=== PATIENT | male | born 1960 | race Caucasian/White ===

== ENCOUNTER → 2016-12-29 | Outpatient (CLI) | payer BC, OTHER ==
[~2016-12-29] MED LIST: ACET-1256 PO; ANTIFUNGAL TOP; ASCA500 PO; ASPEC325 PO; CALCTAB5 PO; CPRUNK PO; FERR325T5 PO; GLCSC750600 PO; GLUC10007 PO; IBUP-1277 PO; LRTUNK PO; MAGN400T6 PO; METO-217 PO; METO25TA3 PO; MULT-506 PO; OMEG10007 PO; PANT40TA PO; ROSU5TAB PO; SERT50TA PO; TRAM-10 PO; TRAM-453 PO; VITAMIN B 12 INJ
[2016-12-29 12:44] LABS: ALB/GLOB RATIO 1.3 (0.9-2); ALT/SGPT 42 U/L (12-78); BLOOD UREA NITROGEN 12 mg/dl (7-18); BUN/CREATININE RATIO 13.4 (10-20); CALCIUM 8.5 mg/dl (8.5-10.1); CARBON DIOXIDE 22 mmol/L (21-32); CHLORIDE 107 mmol/L (98-107); CHOLESTEROL 123 mg/dl (0-200); CREATININE 0.86 mg/dl (0.60-1.40); GLUCOSE 103 mg/dl (70-99); POTASSIUM 3.2 mmol/L (3.5-5.1); SODIUM 140 mmol/L (136-145)
[2016-12-29 12:45] LABS: ALKALINE PHOSPHATASE 56 U/L (45-117); AST/SGOT 29 U/L (15-37); CHOLESTEROL/HDL RATIO 4.6; HDL CHOLESTEROL 27 mg/dl; LDL CHOLESTEROL CALCULATED 60 mg/dl; TRIGLYCERIDES 179 mg/dl (0-150); VERY LOW DENSITY LIPOPROT CALC 36 mg/dl
== END | disposition home or self-care (01) ==
LOC: C.LABPVFM 09:57
PROVIDERS: ATTEND Family Medicine
DX: E78.5 Hyperlipidemia, unspecified (principal); I10 Essential (primary) hypertension; R00.2 Palpitations

== ENCOUNTER → 2017-01-03 | Outpatient (CLI) | payer BC, OTHER ==
[2017-01-03 11:18] LABS: INR 0.9 (0.9-1.1)
[2017-01-03 11:37] LABS: BLOOD UREA NITROGEN 5 mg/dl (7-18); BUN/CREATININE RATIO 6.4 (10-20); CALCIUM 8.4 mg/dl (8.5-10.1); CARBON DIOXIDE 27 mmol/L (21-32); CHLORIDE 108 mmol/L (98-107); CREATININE 0.75 mg/dl (0.60-1.40); GLUCOSE 85 mg/dl (70-99); SODIUM 143 mmol/L (136-145)
[2017-01-03 11:40] LABS: HEMATOCRIT 20.8 % (42-52); MEAN CELL VOLUME 109.5 fL (80-100); MEAN CORPUSCULAR HEMOGLOBIN 33.7 pg (25-34); MEAN CORPUSCULAR HGB CONC 30.8 g/dl (32-36); MEAN PLATELET VOLUME 9.2 fL (7.4-10.4); PLATELET COUNT 331 K/uL (130-400); WHITE BLOOD COUNT 5.44 K/uL (4.8-10.8)
[2017-01-03 11:49] LABS: BASO % 0.7 %; BASO ABS # 0.04 K/uL (0-0.2); COMPLETE YES; EOS % 2.4 %; HYPOCHROMIA PRESENT; IG% 0.7 %; LYMPH % 24.6 %; LYMPH ABS # 1.34 K/uL (1.2-3.4); MONO % 12.7 %; NEUT % 58.9 %; POLYCHROMASIA 2+
[2017-01-03 13:17] LABS: URINE APPEARANCE CLEAR (CLEAR); URINE BILIRUBIN NEG (NEG); URINE COLOR DK YELLOW; URINE NITRITE NEG (NEG); UROBILINOGEN NEG (NEG)
[2017-01-03 13:26] LABS: MANUAL MICROSCOPIC REQUIRED? NO; REVIEW REQ? NO
== END | disposition home or self-care (01) ==
LOC: C.CPL 10:03
PROVIDERS: ATTEND Orthopaedic Surgery
DX: Z01.810 Encounter for preprocedural cardiovascular examination (principal)

== ENCOUNTER 2017-01-04 11:25 | Inpatient (IN) | payer OTHER ==
[2017-01-04] VITALS (13 sets, daily range): BP systolic 130–165; BP diastolic 78–99; PULSE 84–110; TEMP 36.9–37.3; O2SAT 98–100; Ht 182.9 cm; Wt 98.4 kg
[~2017-01-04] VITALS: Ht 182.9 cm; Wt 98.4 kg
[~2017-01-04 11:25] MED LIST changes: -ACET-1256 PO; -FERR325T5 PO; -GLUC10007 PO; -IBUP-1277 PO; -MAGN400T6 PO; -METO-217 PO; -METO25TA3 PO; -MULT-506 PO; -OMEG10007 PO; -PANT40TA PO; -ROSU5TAB PO; -SERT50TA PO; -TRAM-10 PO; -TRAM-453 PO; -VITAMIN B 12 INJ
[2017-01-04] MEDS ORDERED: IBUP-1277 PO (11:42)
[2017-01-04] MEDS ORDERED: ROSU5TAB PO (11:42)
[2017-01-04] MEDS ORDERED: METO25TA3 PO (11:42)
[2017-01-04] MEDS ORDERED: MAGN400T6 PO (11:42)
[2017-01-04] MEDS ORDERED: ACET-1256 PO (11:42)
[2017-01-04] MEDS ORDERED: OMEG10007 PO (11:42)
[2017-01-04] MEDS ORDERED: GLUC10007 PO (11:42)
[2017-01-04 12:21] LABS: ISTAT CREATININE 0.8 mg/dl (0.6-1.3); ISTAT HEMOGLOBIN 7.8 g/dl (14.0-18.0); ISTAT IONIZED CALCIUM 1.24 mmol/l (1.12-1.32)
[2017-01-04] MEDS ORDERED: SODIUM CHLORIDE 0.9% 1000ML 1,000 ML IV STA (13:06)
[2017-01-04 13:20] LABS: BASO % 0.5 %; BASO ABS # 0.03 K/uL (0-0.2); EOS % 0.8 %; IG% 0.3 %; LYMPH % 18.5 %; MEAN CELL VOLUME 105.7 fL (80-100); MEAN CORPUSCULAR HGB CONC 31.3 g/dl (32-36); MEAN PLATELET VOLUME 9.5 fL (7.4-10.4); MONO % 8.8 %; NEUT % 71.1 %; PLATELET COUNT 371 K/uL (130-400); RED BLOOD COUNT 2.27 M/uL (4.7-6.1); WHITE BLOOD COUNT 6.49 K/uL (4.8-10.8)
[2017-01-04 13:21] LABS: BUN/CREATININE RATIO 7.2 (10-20); CALCIUM 9.2 mg/dl (8.5-10.1); CREATININE 0.82 mg/dl (0.60-1.40); POTASSIUM 3.9 mmol/L (3.5-5.1)
[2017-01-04 13:32] LABS: PARTIAL THROMBOPLASTIN RATIO 0.8; PROTHROMBIN TIME (PATIENT) 10.2 SECONDS (9.0-12.0)
[2017-01-04 13:50] LABS: ANISOCYTOSIS PRESENT; COMPLETE YES; POLYCHROMASIA 2+
[2017-01-04] MEDS ORDERED: PANTOprazole INJ 40 MG in SYRINGE 0 ML IV ONE (14:00)
[2017-01-04 14:06] LABS: URINE APPEARANCE CLEAR (CLEAR); URINE BILIRUBIN NEG (NEG); URINE COLOR YELLOW; URINE NITRITE NEG (NEG); URINE SPECIFIC GRAVITY 1.007 (1.000-1.030); UROBILINOGEN NEG (NEG)
[2017-01-04 14:12] LABS: MANUAL MICROSCOPIC REQUIRED? NO; REVIEW REQ? NO
[2017-01-04] MEDS ORDERED: PANTOprazole INJ 80 MG in DEXTROSE 5% 100ML IV SCH (14:30)
[2017-01-04] MEDS ORDERED: PANTOprazole INJ 40 MG in DEXTROSE 5% 100ML IV SCH (14:45)
--- NOTE | 2017-01-04 14:59 | EMERGENCY ROOM VISIT NOTE ---
History Report prepared by Ty: Jai White Under the Supervision of: Dr. Mauricio Dominguez D.O. First contact with patient: 13:03 Chief Complaint: ABNORMAL LABS Stated Complaint: LOW HEMOGLOBIN History of Present Illness The patient is a 56 year old male who presents to the Emergency Room with concerns over low blood hemoglobin levels that the patient was informed of today , shortly prior to arrival. The patient notes that he first noticed black and tarry stools 9 days prior to this visit. He has not noticed any such irregularities in his stools in the past three days. The patient also notes experiencing some vomiting and influenza-like symptoms on the 25 of December, 11 days ago. He also complains of chest pain, which is worsened by standing and physical activity. 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 Patient denies headache, change in vision, fevers, and pain with urination. 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 A total of 10 systems reviewed and were otherwise negative. Past Medical & Surgical Medical Problems: (1) Hyperlipidemia (2) Hypertension (3) Low hemoglobin Family History Hypertension Pernicious Anemia MOTHER BROTHER SISTER Social History Smoking Status: Never Smoker Alcohol Use: occasionally Drug Use: none Occupation Status: employed Current/Historical Medications Scheduled Acetaminophen (Tylenol), 1,000 MG PO DAILY Fish Oil ([place]-3), 3,000 MG PO DAILY Glucosamine Sulfate (Glucosamine), 2,000 MG PO DAILY Ibuprofen (Advil), 200-600 MG PO Q4H Magnesium Oxide (Mag-Ox), 400 MG PO DAILY Metoprolol Succ (Toprol Xl) (Toprol-Xl), 25 MG PO DAILY Rosuvastatin Calcium (Crestor), 5 MG PO Q2D Allergies Coded Allergies: BEE STING (Unverified Allergy, Unknown, anaphylaxis, 01/04/17) Penicillins (Verified Allergy, Unknown, RASH, 01/04/17) Uncoded Allergies: "SYNTHETIC PAIN KILLERS" (Allergy, Unknown, violent nausea per pt, 01/04/17) Physical Exam Vital Signs Date Time Temp Pulse Resp B/P Pulse Ox O2 Delivery O2 Flow Rate FiO2 01/04/17 16:04 Room Air 3/8/17 15:39 37.3 108 16 150/83 98 01/04/17 15:22 36.9 103 16 146/79 100 01/04/17 15:05 37.0 100 22 153/93 98 01/04/17 14:28 104 20 160/91 99 Room Air 01/04/17 12:57 97 18 151/92 94 Room Air 01/04/17 12:07 96 Room Air 01/04/17 12:02 100 01/04/17 11:27 36.8 103 20 154/86 100 Room Air Pain Rating (0-10): 0 Physical Exam GENERAL: sitting up in bed, disheveled, well nourished, no distress, non-toxic EYE EXAM: normal conjunctiva, PERRL and EOM's grossly intact OROPHARYNX: no exudate, no erythema, lips, buccal mucosa, and tongue normal and mucous membranes are moist NECK: supple, no nuchal rigidity, no adenopathy, non-tender LUNGS: Clear to auscultation. Normal chest wall mechanics HEART: no murmurs, S1 normal and S2 normal ABDOMEN: abdomen soft, non-tender, normo-active bowel sounds, no masses, no rebound or guarding. BACK: Back is symmetrical on inspection and there is no deformity, no midline tenderness, no CVA tenderness. SKIN: no rashes and no bruising UPPER EXTREMITIES: upper extremities are grossly normal. LOWER EXTREMITIES: No pitting edema. NEURO EXAM: Normal sensorium, cranial nerves II-XII grossly intact, normal speech, no gross weakness of arms, no gross weakness of legs. RECTAL: No hemorrhoids, heme negative, no stool present. Medical Decision & Procedures Laboratory Results 01/04/17 12:00 Red Blood Count 2.27, Mean Corpuscular Volume 105.7, Mean Corpuscular Hemoglobin 33.0, Mean Corpuscular Hemoglobin Concent 31.3, Mean Platelet Volume 9.5, Neutrophils (%) (Auto) 71.1, Lymphocytes (%) (Auto) 18.5, Monocytes (%) ( Auto) 8.8, Eosinophils (%) (Auto) 0.8, Basophils (%) (Auto) 0.5, Neutrophils # ( Auto) 4.62, Lymphocytes # (Auto) 1.20, Monocytes # (Auto) 0.57, Eosinophils # ( Auto) 0.05, Basophils # (Auto) 0.03 01/04/17 12:00 Test 01/04/17 12:00 01/04/17 12:02 01/04/17 13:40 01/04/17 16:01 White Blood Count 6.49 K/uL (4.8-10.8) Red Blood Count 2.27 M/uL (4.7-6.1) Hemoglobin 7.5 g/dL (14.0-18.0) Hematocrit 24.0 % (42-52) Mean Corpuscular Volume 105.7 fL (80-100) Mean Corpuscular Hemoglobin 33.0 pg (25-34) Mean Corpuscular Hemoglobin Concent 31.3 g/dl (32-36) Platelet Count 371 K/uL (130-400) Mean Platelet Volume 9.5 fL (7.4-10.4) Neutrophils (%) (Auto) 71.1 % Lymphocytes (%) (Auto) 18.5 % Monocytes (%) (Auto) 8.8 % Eosinophils (%) (Auto) 0.8 % Basophils (%) (Auto) 0.5 % Neutrophils # (Auto) 4.62 K/uL (1.4-6.5) Lymphocytes # (Auto) 1.20 K/uL (1.2-3.4) Monocytes # (Auto) 0.57 K/uL (0.11-0.59) Eosinophils # (Auto) 0.05 K/uL (0-0.5) Basophils # (Auto) 0.03 K/uL (0-0.2) RDW Standard Deviation 65.9 fL (36.4-46.3) RDW Coefficient of Variation 17.3 % (11.5-14.5) Immature Granulocyte % (Auto) 0.3 % Immature Granulocyte # (Auto) 0.02 K/uL (0.00-0.02) Nucleated RBC Absolute Count (auto) 0.03 K/uL (0-0) Nucleated Red Blood Cells % 0.4 % Polychromasia 2+ Anisocytosis PRESENT Prothrombin Time 10.2 SECONDS (9.0-12.0) Prothromb Time International Ratio 1.0 (0.9-1.1) Activated Partial Thromboplast Time 19.8 SECONDS (21.0-31.0) Partial Thromboplastin Ratio 0.8 Est Creatinine Clear Calc Drug Dose 123.8 ml/min Estimated GFR () 115.4 Estimated GFR (Non- 99.6 BUN/Creatinine Ratio 7.2 (10-20) Calcium Level 9.2 mg/dl (8.5-10.1) Total Bilirubin 0.4 mg/dl (0.2-1) Direct Bilirubin 0.1 mg/dl (0-0.2) Aspartate Amino Transf (AST/SGOT) 36 U/L (15-37) Alanine Aminotransferase (ALT/SGPT) 53 U/L (12-78) Alkaline Phosphatase 70 U/L (45-117) Troponin I < 0.015 ng/ml (0-0.045) Total Protein 6.6 gm/dl (6.4-8.2) Albumin 3.3 gm/dl (3.4-5.0) Lipase 215 U/L (73-393) Bedside Hemoglobin 7.8 g/dl (14.0-18.0) Bedside Hematocrit 23 % (42-52) Bedside Sodium 141 mEq/L (135-144) Bedside Potassium 3.9 mEq/L (3.3-5.0) Bedside Chloride 103 mEq/L (101-112) Bedside Total CO2 23 mEq/l (24-31) Anion Gap 19.0 mmol/L (16-25) Bedside Blood Urea Nitrogen 4 mg/dl (7-18) Bedside Creatinine 0.8 mg/dl (0.6-1.3) Bedside Glucose (other) 105 mg/dl (70-99) Bedside Ionized Calcium (Joaquina) 1.24 mmol/l (1.12-1.32) Urine Color YELLOW Urine Appearance CLEAR (CLEAR) Urine pH 8.0 (4.5-7.5) Urine Specific [place] 1.007 (1.000-1.030) Urine Protein NEG (NEG) Urine Glucose (UA) NEG (NEG) Urine Ketones NEG (NEG) Urine Occult Blood NEG (NEG) Urine Nitrite NEG (NEG) Urine Bilirubin NEG (NEG) Urine Urobilinogen NEG (NEG) Urine Leukocyte Esterase NEG (NEG) Transferrin % Saturation % (20-50) Laboratory results per my review. Medications Administered Medications (Trade) Dose Ordered Sig/Johana Route Start Time Stop Time Status Last Admin Dose Admin Sodium Chloride 1,000 ml @ 999 mls/hr Q1H1M STAT IV 01/04/17 13:06 01/04/17 14:06 DC 01/04/17 12:58 999 MLS/HR Pantoprazole Sodium 40 mg/ Syringe 10 ml @ 5 mls/min NOW ONCE IV 01/04/17 14:00 01/04/17 14:01 DC 01/04/17 14:24 5 MLS/MIN Pantoprazole Sodium/Dextrose (Protonix Inj/D5 100ml) 100 ml @ 20 mls/hr 1445 IV 01/04/17 14:45 01/04/17 19:44 01/04/17 14:56 20 MLS/HR ECG Indication: other (Melena) Rate (beats per minute): 96 Rhythm: normal sinus Findings: nonspecific-ST abn, no ectopy, other (Normal [place]) ED Course ED COURSE: Vital signs were reviewed and showed Tachycardiac vitals The patients medical record was reviewed The above diagnostic studies were performed and reviewed. ED treatments and interventions as stated above. 1306: Ordered Sodium Chloride 1000 mL @ 999 mL/hr IV. 1319: The patient was evaluated in room A11. A complete history and physical examination was performed. 1400: Ordered Pantoprazole 10 mL @ 5 mL/min IV. 1407: I discussed the case with Dr. Campos at this time, he will evaluate the patient for further treatment. 1409: Ordered Pantoprazole Sodium 1 IV. 1445: Ordered Pantoprazole 100 mL @ 20 mL/hr IV. 1450: Upon reevaluation, the patient is resting in bed.I discussed my findings with the patient and he understands and agrees with the treatment plan. Based on the patients age, coexisting illnesses, exam and lab findings the decision to treat as an inpatient was made. The patient remained stable while under my care. The patient will be evaluated for further management. Medical Decision Differential diagnosis: Etiologies such as diverticulosis, AVM, coagulopathy, colitis, inflammatory bowel disease, malignancy, Linda-Dee tear, esophagitis, peptic ulcer disease , variceal bleed, gastritis, epistaxis, fissure, hemorrhoids, as well as others were entertained. Patient is a 56-year-old male who presents the ER for dark tarry stools which has been present for this past week. It resolved Monday. Patient does take ibuprofen daily 600 mg. Patient's exam is completely benign. Rectal was heme- negative but no stool was obtained. He has no abdominal pain. Vitals are remarkable for mild tachycardia. Hemoglobin was 7.8 down from 15. Patient was given bolus and will saline. He was typed and crossed. He is ordered 1 unit of PRBC. BMP along with LFTs, bilirubin and lipase were unremarkable. UA was negative. His placed Protonix drip and bolus in its and internal medicine for GI bleed. No previous colonoscopy. Patient remained hemodynamic stable along the ER. Patient was in its internal medicine for further workup of his GI bleed. Consults Time Called: [phone] Consulting Physician: Dr. Campos - [facility] Returned Call: [phone] I discussed the case with Dr. Campos at this time, he will evaluate the patient for further treatment. Impression Primary Impression: GI bleed Additional Impression: Symptomatic anemia Scribe Attestation The scribe's documentation has been prepared under my direction and personally reviewed by me in its entirety. I confirm that the note above accurately reflects all work, treatment, procedures, and medical decision making performed by me. Departure Information Dispostion Being Evaluated By Hospitalist Referrals Yuan Baez M.D. (PCP) Patient Instructions My [facility] Problem Qualifiers Primary Impression: GI bleed GI bleed type/associated pathology: unspecified gastrointestinal hemorrhage type Qualified Codes: K92.2 - Gastrointestinal hemorrhage, unspecified
[2017-01-04] MEDS ORDERED: POLYETHYLENE (MIRALAX) 17 GM PACK PO PRN (15:00)
[2017-01-04] MEDS ORDERED: MAGNESIUM HYDROXIDE SUSP 30 ML UDC PO PRN (15:00)
[2017-01-04] MEDS ORDERED: ALUMINUM/MAGNESIUM/SIMETH (MAALOX MAX) 30 ML UDC PO PRN (15:00)
[2017-01-04] MEDS ORDERED: ONDANSETRON INJ 2 MG/ML 2 ML VIAL IV PRN (15:00)
[2017-01-04] MEDS ORDERED: ACETAMINOPHEN 325 MG TAB PO PRN (15:00)
--- NOTE | 2017-01-04 15:13 | History and Physical ---
History & Physical Date & Time of Service: Jan 04, 2017 at 15:09 Chief Complaint: Low Hemoglobin Primary Care Physician: Yuan Baez M.D. History of Present Illness Source: patient Mr. Mcfarland is a 56 y/o male with PMHx of HTN, Tachycardia, and HLD who presents to the ED for a low hemoglobin. Patient reports he had routine blood work yesterday for his anticipated right knee meniscal repair surgery. He was called today because his hemoglobin was 6.4. Patient believes his symptoms started on 12/25/2016, he reports flulike symptoms with emesis. He had multiple episodes but denies hematemesis or coffee ground emesis. Emesis contained the foods he attempted to eat. At this time he reported constipation , but on 12/26/2016 he noticed his first black tarry stool. He continued to have these dark-colored stools up until Monday. At this time stools are brown and occasionally loose. He denies hematochezia. He denies history of EGD or colonoscopies. He currently takes ibuprofen 600 mg nearly daily and in the past would use 1200 mg nearly daily. He denies excessive alcohol consumption. Associated shortness of breath on exertion that started at the same time the flulike symptoms began. He reports chest heaviness in addition to the shortness of breath. The symptoms are resolved at rest. Denies family history of colon cancer. Reports significant family history of pernicious anemia in mother, sister, and brother. He denies personal history of pernicious anemia or gastric bypass surgery. He denies fever/chills, N/V, abdominal pain, or dysuria. In the ED, patient is afebrile and mildly tachycardic. Patient is hypertensive. Laboratory significant for hemoglobin of 7.5. Liver function testing is normal and coagulation studies are within normal limits. Patient was started on a Protonix bolus and drip and hydrated with 1 bolus NSS. He will be admitted to telemetry for further evaluation and care. Family History Hypertension Pernicious Anemia MOTHER BROTHER SISTER Social History Smoking Status: Never Smoker Alcohol Use: none Multi-Drug Resistant Organisms History of MDRO: No Allergies Coded Allergies: BEE STING (Unverified Allergy, Unknown, anaphylaxis, 01/04/17) Penicillins (Verified Allergy, Unknown, RASH, 01/04/17) Uncoded Allergies: "SYNTHETIC PAIN KILLERS" (Allergy, Unknown, violent nausea per pt, 01/04/17) Home Medications Scheduled Acetaminophen (Tylenol), 1,000 MG PO DAILY Fish Oil ([place]-3), 3,000 MG PO DAILY Glucosamine Sulfate (Glucosamine), 2,000 MG PO DAILY Ibuprofen (Advil), 200-600 MG PO Q4H Magnesium Oxide (Mag-Ox), 400 MG PO DAILY Metoprolol Succ (Toprol Xl) (Toprol-Xl), 25 MG PO DAILY Rosuvastatin Calcium (Crestor), 5 MG PO Q2D Review of Systems Constitutional: No chills, No fever Eyes: No worsening of vision ENT: No nasal symptoms, No sore throat, No trouble swallowing Respiratory: + dyspnea on exertion, No dyspnea at rest Cardiovascular: + chest pain (heaviness with exertion) Abdomen: No constipation, No diarrhea, No nausea, No pain, No vomiting Musculoskeletal: No calf pain Genitourinary - Male: No dysuria Neurologic: + vertigo, No numbness/tingling Integumentary: No rash Physical Exam Vital Signs Date Time Temp Pulse Resp B/P Pulse Ox O2 Delivery O2 Flow Rate FiO2 01/04/17 15:05 37.0 100 22 153/93 98 01/04/17 14:28 104 20 160/91 99 Room Air 01/04/17 12:57 97 18 151/92 94 Room Air 01/04/17 12:07 96 Room Air 01/04/17 12:02 100 01/04/17 11:27 36.8 103 20 154/86 100 Room Air General Appearance: WD/WN, no apparent distress Head: normocephalic, atraumatic Eyes: PERRL, EOMI, sclerae normal ENT: hearing grossly normal Neck: supple, no JVD, trachea midline Respiratory/Chest: lungs clear, normal breath sounds, no respiratory distress, no accessory muscle use Cardiovascular: regular rate, rhythm, no gallop, no murmur Abdomen/GI: normal bowel sounds, non tender, soft Back: no CVA tenderness Extremities/Musculoskelatal: + swelling (trace pitting edema bilat) Neurologic/Psych: alert, oriented x 3 Skin: warm/dry, + pallor Diagnostics Laboratory Results Results Past 24 Hours Test 01/04/17 12:00 01/04/17 12:02 01/04/17 13:40 Range/Units White Blood Count 6.49 4.8-10.8 K/uL Red Blood Count 2.27 4.7-6.1 M/uL Hemoglobin 7.5 14.0-18.0 g/dL Hematocrit 24.0 42-52 % Mean Corpuscular Volume 105.7 80-100 fL Mean Corpuscular Hemoglobin 33.0 25-34 pg Mean Corpuscular Hemoglobin Concent 31.3 32-36 g/dl Platelet Count 371 130-400 K/uL Mean Platelet Volume 9.5 7.4-10.4 fL Neutrophils (%) (Auto) 71.1 % Lymphocytes (%) (Auto) 18.5 % Monocytes (%) (Auto) 8.8 % Eosinophils (%) (Auto) 0.8 % Basophils (%) (Auto) 0.5 % Neutrophils # (Auto) 4.62 1.4-6.5 K/uL Lymphocytes # (Auto) 1.20 1.2-3.4 K/uL Monocytes # (Auto) 0.57 0.11-0.59 K/uL Eosinophils # (Auto) 0.05 0-0.5 K/uL Basophils # (Auto) 0.03 0-0.2 K/uL RDW Standard Deviation 65.9 36.4-46.3 fL RDW Coefficient of Variation 17.3 11.5-14.5 % Immature Granulocyte % (Auto) 0.3 % Immature Granulocyte # (Auto) 0.02 0.00-0.02 K/uL Nucleated RBC Absolute Count (auto) 0.03 0-0 K/uL Nucleated Red Blood Cells % 0.4 % Polychromasia 2+ Anisocytosis PRESENT Prothrombin Time 10.2 9.0-12.0 SECONDS Prothromb Time International Ratio 1.0 0.9-1.1 Activated Partial Thromboplast Time 19.8 21.0-31.0 SECONDS Partial Thromboplastin Ratio 0.8 Sodium Level 142 136-145 mmol/L Potassium Level 3.9 3.5-5.1 mmol/L Chloride Level 107 98-107 mmol/L Carbon Dioxide Level 22 21-32 mmol/L Anion Gap 13.0 19.0 16-25 mmol/L Blood Urea Nitrogen 6 7-18 mg/dl Creatinine 0.82 0.60-1.40 mg/dl Est Creatinine Clear Calc Drug Dose 123.8 ml/min Estimated GFR () 115.4 Estimated GFR (Non- 99.6 BUN/Creatinine Ratio 7.2 10-20 Random Glucose 100 70-99 mg/dl Calcium Level 9.2 8.5-10.1 mg/dl Total Bilirubin 0.4 0.2-1 mg/dl Direct Bilirubin 0.1 0-0.2 mg/dl Aspartate Amino Transf (AST/SGOT) 36 15-37 U/L Alanine Aminotransferase (ALT/SGPT) 53 12-78 U/L Alkaline Phosphatase 70 45-117 U/L Total Protein 6.6 6.4-8.2 gm/dl Albumin 3.3 3.4-5.0 gm/dl Lipase 215 73-393 U/L Bedside Hemoglobin 7.8 14.0-18.0 g/dl Bedside Hematocrit 23 42-52 % Bedside Sodium 141 135-144 mEq/L Bedside Potassium 3.9 3.3-5.0 mEq/L Bedside Chloride 103 101-112 mEq/L Bedside Total CO2 23 24-31 mEq/l Bedside Blood Urea Nitrogen 4 7-18 mg/dl Bedside Creatinine 0.8 0.6-1.3 mg/dl Bedside Glucose (other) 105 70-99 mg/dl Bedside Ionized Calcium (Joaquina) 1.24 1.12-1.32 mmol/l Urine Color YELLOW Urine Appearance CLEAR CLEAR Urine pH 8.0 4.5-7.5 Urine Specific [place] 1.007 1.000-1.030 Urine Protein NEG NEG Urine Glucose (UA) NEG NEG Urine Ketones NEG NEG Urine Occult Blood NEG NEG Urine Nitrite NEG NEG Urine Bilirubin NEG NEG Urine Urobilinogen NEG NEG Urine Leukocyte Esterase NEG NEG EKG Normal sinus rhythm Nonspecific ST abnormality Abnormal ECG When compared with ECG of 03-JAN-2017 10:32, No significant change was found Impression Assessment and Plan Mr. Mcfarland is a 56 y/o male with PMHx of HTN, Tachycardia, and HLD who presents to the ED for a low hemoglobin. Acute Blood Loss Anemia with Melena: Hgb 7.5 - Transfuse 2 units PRBC now - Serial H&H Q6H - B12 level - given significant FMHx -- May need additional workup - Protonix gtt - NSS at 100 mL/hr - Consult GI - spoke with Dr. May Significant Heart Murmur: - Harsh loud murmur auscultated in all heart regions - After hydration will evaluate in AM? May need echo to evaluate for abnormality - flow murmur? HTN and Tachycardia: - Patient denies arrhythmias but known to have an elevated HR normally in 90s - Hold Metoprolol XL while NPO - Metoprolol Tartrate 2.5 mg IV TID HLD: - Hold Crestor 5 mg - states recent labs are good and was instructed to take biweekly DVT Prophylaxis: - LINDA/SCDs - Withhold chemical prophylaxis in setting of GI bleed Code Status: FULL RESUSCITATION Disposition: From home Pt examined independently - above hostroy and orders reviwed and discussed with PA Admitted with weakness, SOB and anemia - admits to dark stools and frequent NSAID use Initial Hb 6.3 - 7.2 OEAAO x 3 S1,2 r + pansystolic murmur CTAB NT, NT, BS + no C/C/E P: transfuse 2 units - trend Hb - protonix, GI consult reg murmur - this may be flow-related due t his anemia - it is prominent however and pt was not aware of a murmur history - if following volume repletion /transfusions murmur is still audible then we will obtain an echo pt assigned to telemetry Level of Care Telemetry Resuscitation Status FULL RESUSCITATION VTE Prophylaxis VTE Risk Assessment Done? Y/N: Yes Risk Level: Moderate Given or contraindicated: T.E.D. Stockings, SCD's
--- NOTE | 2017-01-04 16:21 | Gastroenterology Progress Note ---
Progress Note Date of Service: Jan 04, 2017 Subjective Pt evaluation today including: conversation w/ patient, physical exam, chart review, lab review, review of studies, review of inpatient medication list Medications Current Inpatient Medications Medications (Trade) Dose Ordered Sig/Johana Route Start Time Stop Time Status Last Admin Dose Admin Pantoprazole Sodium 40 mg/ Dextrose 100 ml @ 20 mls/hr 1445 IV 01/04/17 14:45 01/04/17 19:44 01/04/17 14:56 20 MLS/HR Sodium Chloride (Nss 1000ml) 1,000 ml @ 100 mls/hr Q10H IV 01/04/17 14:58 02/03/17 14:57 Acetaminophen (Tylenol Tab) 650 mg Q4H PRN PO 01/04/17 15:00 02/03/17 14:59 Al Hydrox/Mg Hydrox/Simethicone (Maalox Max Susp) 15 ml Q4H PRN PO 01/04/17 15:00 02/03/17 14:59 Magnesium Hydroxide (Milk Of Magnesia Susp) 30 ml Q12H PRN PO 01/04/17 15:00 02/03/17 14:59 Ondansetron HCl (Zofran Inj) 4 mg Q6H PRN IV 01/04/17 15:00 02/03/17 14:59 Polyethylene (Miralax Powder Packet) 17 gm DAILY PRN PO 01/04/17 15:00 02/03/17 14:59 Metoprolol Tartrate 2.5 mg 2.5 mg Q8H IV. 01/04/17 15:00 02/03/17 14:59 UNV Pantoprazole Sodium/Dextrose (Protonix Inj/D5 100ml) 100 ml @ 20 mls/hr Q5H IV 01/04/17 15:00 02/03/17 14:59 UNV Objective Vital Signs Date Time Temp Pulse Resp B/P Pulse Ox O2 Delivery O2 Flow Rate FiO2 01/04/17 15:39 37.3 108 16 150/83 98 01/04/17 15:22 36.9 103 16 146/79 100 01/04/17 15:05 37.0 100 22 153/93 98 01/04/17 14:28 104 20 160/91 99 Room Air 01/04/17 12:57 97 18 151/92 94 Room Air 01/04/17 12:07 96 Room Air 01/04/17 12:02 100 01/04/17 11:27 36.8 103 20 154/86 100 Room Air Laboratory Results Last 24 Hours Test 01/04/17 12:00 01/04/17 12:02 01/04/17 13:40 01/04/17 16:01 White Blood Count 6.49 K/uL Red Blood Count 2.27 M/uL Hemoglobin 7.5 g/dL Hematocrit 24.0 % Mean Corpuscular Volume 105.7 fL Mean Corpuscular Hemoglobin 33.0 pg Mean Corpuscular Hemoglobin Concent 31.3 g/dl Platelet Count 371 K/uL Mean Platelet Volume 9.5 fL Neutrophils (%) (Auto) 71.1 % Lymphocytes (%) (Auto) 18.5 % Monocytes (%) (Auto) 8.8 % Eosinophils (%) (Auto) 0.8 % Basophils (%) (Auto) 0.5 % Neutrophils # (Auto) 4.62 K/uL Lymphocytes # (Auto) 1.20 K/uL Monocytes # (Auto) 0.57 K/uL Eosinophils # (Auto) 0.05 K/uL Basophils # (Auto) 0.03 K/uL RDW Standard Deviation 65.9 fL RDW Coefficient of Variation 17.3 % Immature Granulocyte % (Auto) 0.3 % Immature Granulocyte # (Auto) 0.02 K/uL Nucleated RBC Absolute Count (auto) 0.03 K/uL Nucleated Red Blood Cells % 0.4 % Polychromasia 2+ Anisocytosis PRESENT Prothrombin Time 10.2 SECONDS Prothromb Time International Ratio 1.0 Activated Partial Thromboplast Time 19.8 SECONDS Partial Thromboplastin Ratio 0.8 Sodium Level 142 mmol/L Potassium Level 3.9 mmol/L Chloride Level 107 mmol/L Carbon Dioxide Level 22 mmol/L Anion Gap 13.0 mmol/L 19.0 mmol/L Blood Urea Nitrogen 6 mg/dl Creatinine 0.82 mg/dl Est Creatinine Clear Calc Drug Dose 123.8 ml/min Estimated GFR () 115.4 Estimated GFR (Non- 99.6 BUN/Creatinine Ratio 7.2 Random Glucose 100 mg/dl Calcium Level 9.2 mg/dl Total Bilirubin 0.4 mg/dl Direct Bilirubin 0.1 mg/dl Aspartate Amino Transf (AST/SGOT) 36 U/L Alanine Aminotransferase (ALT/SGPT) 53 U/L Alkaline Phosphatase 70 U/L Total Protein 6.6 gm/dl Albumin 3.3 gm/dl Lipase 215 U/L Bedside Hemoglobin 7.8 g/dl Bedside Hematocrit 23 % Bedside Sodium 141 mEq/L Bedside Potassium 3.9 mEq/L Bedside Chloride 103 mEq/L Bedside Total CO2 23 mEq/l Bedside Blood Urea Nitrogen 4 mg/dl Bedside Creatinine 0.8 mg/dl Bedside Glucose (other) 105 mg/dl Bedside Ionized Calcium (Joaquina) 1.24 mmol/l Urine Color YELLOW Urine Appearance CLEAR Urine pH 8.0 Urine Specific [place] 1.007 Urine Protein NEG Urine Glucose (UA) NEG Urine Ketones NEG Urine Occult Blood NEG Urine Nitrite NEG Urine Bilirubin NEG Urine Urobilinogen NEG Urine Leukocyte Esterase NEG Transferrin % Saturation % Assessment and Plan GI consult dictated Job [id number] Melena--most c/w with UGI bleed and likely PUD from Ibuprofen. Recommend Protonix and if no other issues arise then EGD tomorrow. Proc and risks explained to patient which include but not limited to medication reaction, bleeding, perforation, aspiration. Discussed alternative no testing or doing UGI at some point. Pt wishes to proceed with EGD. Most recent stools brown so no active bleeding clinically. Acute blood loss anemia--check Fe sat and ferritin although blood started and may not be accurate, transfuse prn. Elevated MCV--check B12 and folate
[2017-01-04 17:09] LABS: FERRITIN 491.5 ng/ml (8.0-388.0)
--- NOTE | 2017-01-04 17:18 | GASTROINTESTINAL CONSULTATION ---
DATE OF CONSULTATION: 01/04/2017 REASON FOR CONSULTATION: Anemia, melena. REQUESTING PHYSICIAN: Hospitalist. CHIEF COMPLAINT: The patient has a low hemoglobin. HISTORY OF PRESENT ILLNESS: The patient had some routine blood work yesterday on 01/03/2017 in anticipation of right knee surgery, his hemoglobin was noted to be 6.4. He was told to come to the Emergency Room. Today, his hemoglobin was noted to be 7.5. He is having no abdominal pain. His stools were initially a little bit firmer and then loose, black tarry from about 12/26 until 3 days prior to admission. Also had an episode of flu-like symptoms and emesis 12/25 but no no coffee-grounds or tony blood. He states he has lost about 6 pounds with this flu-like illness. No fever. Has mild GERD periodically. No history of liver disease. No EGD or colonoscopy in the past per his report. Has not seen a GI doctor in the past. PAST MEDICAL HISTORY: ALLERGIES: SYNTHETIC PAINKILLERS, BEE STING, PENICILLIN. MEDICATIONS ON ADMISSION: Include acetaminophen, glucosamine, ibuprofen up to 1200 mg a day, Toprol, Crestor, magnesium, and fish oil. MEDICAL PROBLEMS: Hypertension. FAMILY HISTORY: Negative for colorectal cancer. There is a family history of pernicious anemia. SOCIAL HISTORY: Tobacco negative, ethanol negative. REVIEW OF SYSTEMS: CONSTITUTIONAL: Some weakness and dizziness. EYES: Some blurry in the right eye. EARS, NOSE, MOUTH AND THROAT: Negative. CARDIOVASCULAR: Some chest heaviness. RESPIRATORY: Some dyspnea on exertion. GENITOURINARY: Negative. MUSCULOSKELETAL: Arthritis, especially in the right knee. INTEGUMENTARY: Negative. NEUROLOGIC: Negative. PSYCHIATRIC: Negative. ENDOCRINE: Negative. HEMATOLOGIC: Negative except as noted above. PHYSICAL EXAMINATION: GENERAL: Male, appears stated age, in no acute distress. VITAL SIGNS: Most recent vital signs in the chart. Temp 37.3, pulse 108, respirations 16, BP 150/83, O2 saturation 98% on room air. EYES: Conjunctivae and lids normal. ENT: Oropharynx clear. NECK: Without obvious mass or thyroid enlargement. RESPIRATORY: Normal effort, clear to anterior auscultation. CARDIOVASCULAR: Regular rate and rhythm. EXTREMITIES: Trace edema. ABDOMEN: Positive bowel sounds, soft, nontender, no obvious organomegaly or masses are appreciated. RECTAL: Not done. LYMPH: No obvious neck or groin nodes. MUSCULOSKELETAL: Digits and nails normal. SKIN: Without obvious rash or induration anteriorly. NEUROLOGIC: Cranial nerves intact. Sensation intact. PSYCHIATRIC: Recent and remote memory good. Insight and judgment good. DATA: CMP abnormals, glucose 100, albumin 3.3, lipase was normal. PT, PTT was okay. On the CBC, the hemoglobin today is 7.5 with an elevated MCV of 106. IMPRESSION AND PLAN: 1. Melena, most consistent with upper gastrointestinal bleeding and likely peptic ulcer disease from ibuprofen. Recommend Protonix and if no other issues arise, an EGD tomorrow. I explained the procedure and risk to the patient which include but are not limited to medication reaction, bleeding, perforation, aspiration. I discussed the alternatives of no testing or doing upper GI at some point. The patient wishes to proceed with EGD. 2. Acute blood loss anemia. Check iron saturation and ferritin, although blood started may not be accurate. Transfuse p.r.n. 3. Elevated MCV, check B12 and folate. MTDD
[2017-01-04 18:11] LABS: HEMATOCRIT 24.9 % (42-52)
[2017-01-04] MEDS: PANTOprazole INJ 40 MG in DEXTROSE 5% 100ML 100 ML IV SCH (19:33)
[2017-01-04] MEDS: SODIUM CHLORIDE 0.9% 1000ML 1,000 ML IV SCH (20:44)
[2017-01-04] MEDS: METOPROLOL TARTRATE 1 MG/ML VIAL IV. SCH (21:51)
[2017-01-05] VITALS (8 sets, daily range): BP systolic 142–157; BP diastolic 80–89; PULSE 84–108; TEMP 37.1–37.2; O2SAT 95–99
[2017-01-05] MEDS: PANTOprazole INJ 40 MG in DEXTROSE 5% 100ML 100 ML IV SCH ×5 (00:07→20:38)
[2017-01-05] MEDS: SODIUM CHLORIDE 0.9% 1000ML 1,000 ML IV SCH ×3 (00:08→19:08)
[2017-01-05 00:34] LABS: HEMATOCRIT 27.5 % (42-52)
[2017-01-05] MEDS: METOPROLOL TARTRATE 1 MG/ML VIAL IV. SCH ×3 (05:46→21:49)
[2017-01-05 07:05] LABS: BASO % 0.4 %; BASO ABS # 0.03 K/uL (0-0.2); EOS % 2.5 %; HEMATOCRIT 26.8 % (42-52); IG% 0.1 %; LYMPH % 20.1 %; LYMPH ABS # 1.39 K/uL (1.2-3.4); MEAN CELL VOLUME 98.2 fL (80-100); MEAN CORPUSCULAR HEMOGLOBIN 31.9 pg (25-34); MEAN CORPUSCULAR HGB CONC 32.5 g/dl (32-36); MEAN PLATELET VOLUME 9.1 fL (7.4-10.4); NEUT % 66.9 %; PLATELET COUNT 271 K/uL (130-400); RED BLOOD COUNT 2.73 M/uL (4.7-6.1)
[2017-01-05 07:34] LABS: BUN/CREATININE RATIO 6.2 (10-20); CALCIUM 8.2 mg/dl (8.5-10.1); CREATININE 0.79 mg/dl (0.60-1.40)
[2017-01-05 07:57] LABS: ANISOCYTOSIS PRESENT; COMPLETE YES; POLYCHROMASIA 1+
[2017-01-05] MEDS: CYANOCOBALAMIN 1000 MCG/ML VIAL IM SCH (09:57)
--- NOTE | 2017-01-05 11:40 | History & Physical Bridge Note ---
H&P Re-Evaluation Bridge Note: I have examined the patient, reviewed the History & Physical and in the interval since the performance of the History & Physical I have noted the following changes of clinical significance: No changes noted
[2017-01-05] MEDS ORDERED: PROPOFOL IV EMULSION 10 MG/ML 20 ML VIAL IV ONE (12:10)
[2017-01-05] MEDS ORDERED: LIDOCAINE HCL 2% 2 ML VIAL (20MG/ML) ONE (12:10)
--- NOTE | 2017-01-05 12:24 | Anesthesiology Progress Note ---
Anesthesia Post Op Note Date & Time Jan 05, 2017 at 12:23 Vital Signs Pain Intensity: 0 Vital Signs Past 12 Hours Date Time Temp Pulse Resp B/P Pulse Ox O2 Delivery O2 Flow Rate FiO2 01/05/17 12:10 90 16 120/61 96 Room Air 01/05/17 11:07 37.2 99 20 150/85 100 Room Air 01/05/17 08:00 Room Air 01/05/17 07:37 37.2 89 20 147/80 96 Room Air 01/05/17 05:46 89 152/90 01/05/17 04:00 97 Room Air 01/05/17 03:29 37.1 85 18 146/88 97 Room Air Notes Mental Status: alert / awake / arousable, participated in evaluation Pt Amnestic to Procedure: Yes Nausea / Vomiting: adequately controlled Pain: adequately controlled Airway Patency, RR, SpO2: stable & adequate BP & HR: stable & adequate Hydration State: stable & adequate Anesthetic Complications: no major complications apparent
--- NOTE | 2017-01-05 14:40 | Progress Note ---
Subjective Date of Service: Jan 05, 2017. Subjective Pt evaluation today including: conversation w/ patient, physical exam, lab review, review of inpatient medication list Pain: no pain PO Intake: NPO for EGD Voiding: no voiding problems patient feeling better today after 2 units of PRBC, less fatigue and dyspnea had EGD today, no definitive ulcers, had some esophagitis and biopsies taken GI plans for colonoscopy tomorrow discussed B12 injections as outpatient Problem List Medical Problems: (1) GI bleed Status: Acute (2) Symptomatic anemia Status: Acute Review of Systems Constitutional: + fatigue, + weakness All Other Systems: Reviewed and Negative Medications Current Inpatient Medications Medications (Trade) Dose Ordered Sig/Johana Route Start Time Stop Time Status Last Admin Dose Admin Sodium Chloride (Nss 1000ml) 1,000 ml @ 100 mls/hr Q10H IV 01/04/17 14:58 02/03/17 14:57 01/05/17 10:58 100 MLS/HR Acetaminophen (Tylenol Tab) 650 mg Q4H PRN PO 01/04/17 15:00 02/03/17 14:59 Al Hydrox/Mg Hydrox/Simethicone (Maalox Max Susp) 15 ml Q4H PRN PO 01/04/17 15:00 02/03/17 14:59 Magnesium Hydroxide (Milk Of Magnesia Susp) 30 ml Q12H PRN PO 01/04/17 15:00 02/03/17 14:59 Ondansetron HCl (Zofran Inj) 4 mg Q6H PRN IV 01/04/17 15:00 02/03/17 14:59 Polyethylene (Miralax Powder Packet) 17 gm DAILY PRN PO 01/04/17 15:00 02/03/17 14:59 Metoprolol Tartrate 2.5 mg 2.5 mg Q8H IV. 01/04/17 22:00 02/03/17 21:59 01/05/17 14:09 2.5 MG Pantoprazole Sodium/Dextrose (Protonix Inj/D5 100ml) 100 ml @ 20 mls/hr Q5H IV 01/04/17 19:45 02/03/17 19:44 01/05/17 13:52 20 MLS/HR Cyanocobalamin (Vitamin B-12 Inj) 1,000 mcg DAILY IM 01/05/17 09:00 01/11/17 09:01 3/9/17 09:57 1,000 MCG Polyethylene Glycol/ Electrolytes (Golytely Soln) 1 dose Q10M PO 01/05/17 17:00 01/05/17 19:31 Objective Vital Signs Date Time Temp Pulse Resp B/P Pulse Ox O2 Delivery O2 Flow Rate FiO2 01/05/17 14:09 91 132/78 01/05/17 13:30 Room Air 01/05/17 12:40 91 16 132/78 99 Room Air 01/05/17 12:25 86 18 132/73 97 Room Air 01/05/17 12:10 90 16 120/61 96 Room Air 01/05/17 11:07 37.2 99 20 150/85 100 Room Air 01/05/17 08:00 Room Air 01/05/17 07:37 37.2 89 20 147/80 96 Room Air 01/05/17 05:46 89 152/90 01/05/17 04:00 97 Room Air 01/05/17 03:29 37.1 85 18 146/88 97 Room Air 01/05/17 00:07 37.1 86 18 142/89 98 Room Air 01/05/17 00:01 97 Room Air 01/04/17 21:51 92 133/81 01/04/17 20:28 88 133/81 01/04/17 20:00 Room Air 01/04/17 19:49 84 130/78 01/04/17 19:19 86 130/81 01/04/17 18:49 96 136/82 01/04/17 18:34 37.2 107 16 161/86 98 01/04/17 18:34 37.2 110 161/86 01/04/17 17:39 90 147/89 01/04/17 17:09 100 165/95 01/04/17 16:39 92 162/99 01/04/17 16:09 105 161/95 99 01/04/17 16:04 Room Air 01/04/17 16:00 Room Air 01/04/17 16:00 37.2 102 16 155/96 98 Room Air 01/04/17 15:39 37.3 108 16 150/83 98 01/04/17 15:22 36.9 103 16 146/79 100 01/04/17 15:05 37.0 100 22 153/93 98 Physical Exam General Appearance: WD/WN, no apparent distress Eyes: normal inspection, EOMI, sclerae normal ENT: normal ENT inspection, hearing grossly normal, pharynx normal Neck: supple, no adenopathy, no JVD, trachea midline Respiratory/Chest: chest non-tender, lungs clear, normal breath sounds, no respiratory distress, no accessory muscle use Cardiovascular: regular rate, rhythm, no edema, no gallop, no JVD, no murmur ( crisp valve sounds but no murmur could be heard in all positions) Abdomen: normal bowel sounds, non tender, soft, no organomegaly Extremities: normal range of motion, non-tender, normal inspection, no pedal edema, no calf tenderness Neurologic/Psychiatric: inspector aide II-XII nml as tested, no motor/sensory deficits, alert, normal mood/affect, oriented x 3 Skin: normal color, warm/dry, no rash Lymphatic: no adenopathy Laboratory Results Last 24 Hours Test 01/04/17 18:02 01/05/17 00:22 01/05/17 06:55 Hemoglobin 8.0 g/dL 8.7 g/dL 8.7 g/dL Hematocrit 24.9 % 27.5 % 26.8 % Troponin I < 0.015 ng/ml < 0.015 ng/ml Vitamin B12 Level 181 pg/mL Folate 9.34 ng/mL White Blood Count 6.90 K/uL Red Blood Count 2.73 M/uL Mean Corpuscular Volume 98.2 fL Mean Corpuscular Hemoglobin 31.9 pg Mean Corpuscular Hemoglobin Concent 32.5 g/dl Platelet Count 271 K/uL Mean Platelet Volume 9.1 fL Neutrophils (%) (Auto) 66.9 % Lymphocytes (%) (Auto) 20.1 % Monocytes (%) (Auto) 10.0 % Eosinophils (%) (Auto) 2.5 % Basophils (%) (Auto) 0.4 % Neutrophils # (Auto) 4.61 K/uL Lymphocytes # (Auto) 1.39 K/uL Monocytes # (Auto) 0.69 K/uL Eosinophils # (Auto) 0.17 K/uL Basophils # (Auto) 0.03 K/uL RDW Standard Deviation 67.7 fL RDW Coefficient of Variation 18.9 % Immature Granulocyte % (Auto) 0.1 % Immature Granulocyte # (Auto) 0.01 K/uL Blood Smear Review Polychromasia 1+ Anisocytosis PRESENT Sodium Level 143 mmol/L Potassium Level 4.0 mmol/L Chloride Level 110 mmol/L Carbon Dioxide Level 25 mmol/L Anion Gap 8.0 mmol/L Blood Urea Nitrogen 5 mg/dl Creatinine 0.79 mg/dl Est Creatinine Clear Calc Drug Dose 126.5 ml/min Estimated GFR () 116.3 Estimated GFR (Non- 100.4 BUN/Creatinine Ratio 6.2 Random Glucose 90 mg/dl Calcium Level 8.2 mg/dl Total Bilirubin 0.5 mg/dl Aspartate Amino Transf (AST/SGOT) 28 U/L Alanine Aminotransferase (ALT/SGPT) 47 U/L Alkaline Phosphatase 59 U/L Total Protein 5.5 gm/dl Albumin 2.7 gm/dl Globulin 2.8 gm/dl Albumin/Globulin Ratio 1.0 Assessment and Plan Mr. Mcfarland is a 56 y/o male with PMHx of HTN, Tachycardia, and HLD who presents to the ED for a low hemoglobin. Acute Blood Loss Anemia with Melena: Hgb 7.5 on admission, transfused 2 units and up to 8.7 today feeling much better, less fatigue and [place] EGD 01/05: esophagitis but no evidence of ulcers, biopsies taken plan for colonoscopy tomorrow Macrocytosis, Vitamin B12 deficiency: continue Vitamin B12 1000mcg IM daily will have 7 days of daily dosing then once a month set up for outpatient in his clinic Significant Heart Murmur heard on admission no murmur today, likely a flow murmur yesterday, no plans for echocardiogram HTN and Tachycardia: will give a dose of PO Toprol can use PRN IV HLD: - Hold Crestor 5 mg - states recent labs are good and was instructed to take biweekly DVT Prophylaxis: - LINDA/SCDs - Withhold chemical prophylaxis in setting of GI bleed
[2017-01-05] MEDS ORDERED: METOPROLOL SUCC 25MG EXT REL TAB PO ONE (15:00)
--- NOTE | 2017-01-05 15:07 | GI REPORT ---
Procedure Date: 01/05/2017 11:37 AM Procedure: Upper GI endoscopy Indications: Acute post hemorrhagic anemia, Iron deficiency anemia secondary to chronic blood loss, Melena Medicines: Propofol per Anesthesia Complications: No immediate complications. Estimated blood loss: Minimal. Estimated Blood Loss: Estimated blood loss was minimal. Procedure: Pre-Anesthesia Assessment: - Prior to the procedure, a History and Physical was performed, and patient medications and allergies were reviewed. The patient's tolerance of previous anesthesia was also reviewed. The risks and benefits of the procedure and the sedation options and risks were discussed with the patient. All questions were answered, and informed consent was obtained. Prior Anticoagulants: The patient has taken no previous anticoagulant or antiplatelet agents. ASA Grade Assessment: II - A patient with mild systemic disease. After reviewing the risks and benefits, the patient was deemed in satisfactory condition to undergo the procedure. After obtaining informed consent, the endoscope was passed under direct vision. Throughout the procedure, the patient's blood pressure, pulse, and oxygen saturations were monitored continuously. The scope was introduced through the mouth, and advanced to the third part of duodenum. The upper GI endoscopy was accomplished without difficulty. The patient tolerated the procedure well. Findings: The upper third of the esophagus and middle third of the esophagus were normal. The esophagus and gastroesophageal junction were examined with white light. There were esophageal mucosal changes suggestive of long-segment Carrasco's esophagus. These changes involved the mucosa at the upper extent of the gastric folds (41 cm from the incisors) extending to the Z-line (36 cm from the incisors). Hiatal narrowing was identified at 44 cm. The maximum longitudinal extent of these esophageal mucosal changes was 5 cm in length. Mucosa was biopsied with a cold forceps for histology. One specimen bottle was sent to pathology. Estimated blood loss was minimal. Verification of patient identification for the specimen was done by the physician and reproduction technician using the patient's name and medical record number. A medium-sized hiatus hernia was present. Localized moderate inflammation characterized by congestion (edema), erythema and linear erosions was found in the prepyloric region of the stomach. Biopsies were taken with a cold forceps for Helicobacter pylori testing. The duodenal bulb and 3rd part of the duodenum were normal. Localized mildly scalloped mucosa was found at 2nd part of the duodenum. Biopsies for histology were taken with a cold forceps for evaluation of celiac disease. Estimated blood loss was minimal. Verification of patient identification for the specimen was done by the physician and reproduction technician using the patient's name and medical record number. The cardia and gastric fundus were normal on retroflexion. LA Grade B (one or more mucosal breaks greater than 5 mm, not extending between the tops of two mucosal folds) esophagitis with no bleeding was found 35 cm from the incisors. Impression: - Normal upper third of esophagus and middle third of esophagus. 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 Biopsied. - Medium-sized hiatus hernia. - Acute gastritis. Biopsied. - Normal duodenal bulb and 3rd part of the duodenum. - Scalloped mucosa was found in the duodenum, rule out celiac disease. Biopsied. - LA Grade B reflux esophagitis. Recommendation: - Await pathology results. - Perform a colonoscopy tomorrow. - Clear liquid diet today. - Use a proton pump inhibitor PO BID. - No aspirin, ibuprofen, naproxen, or other non-steroidal anti-inflammatory drugs. MD Tobias Martinez MD 01/05/2017 12:47:32 PM This report has been signed electronically. Note Initiated On: 01/05/2017 11:37 AM I attest to the content of the Intraoperative Record and orders documented therein, exceptions below
[2017-01-05] MEDS: LAVAGE SOLUTION 4000ML PO SCH ×15 (17:00→19:39)
[2017-01-05] MEDS ORDERED: METOPROLOL TARTRATE 1 MG/ML VIAL IV PRN (18:00)
[2017-01-05] MEDS ORDERED: NURSING VERBAL MED ORDER ONE (23:30)
[2017-01-05] MEDS ORDERED: ACETAMINOPHEN IV 1000MG/100ML IV ONE (23:45)
[2017-01-06] MEDS ORDERED: MoRPHine SULFATE 4 MG/ML 1 ML CARP\\VIAL IV STA (02:31)
[2017-01-06] MEDS ORDERED: ACETAMINOPHEN IV 100 ML IV PRN (02:45)
[2017-01-06] MEDS: PANTOprazole INJ 40 MG in DEXTROSE 5% 100ML 100 ML IV SCH ×3 (03:03→12:42)
[2017-01-06 03:56] VITALS: BP 132/82; PULSE 95; TEMP 37.1; O2SAT 94
[2017-01-06 05:59] VITALS: BP 132/82; PULSE 95; TEMP 37.1; O2SAT 94
[2017-01-06] MEDS: MoRPHine SULFATE 2 MG/ML CARP IV PRN ×2 (06:02→08:08)
[2017-01-06 06:58] LABS: HEMATOCRIT 28.3 % (42-52); MEAN CELL VOLUME 99.6 fL (80-100); MEAN CORPUSCULAR HEMOGLOBIN 32.4 pg (25-34); MEAN CORPUSCULAR HGB CONC 32.5 g/dl (32-36); MEAN PLATELET VOLUME 9.5 fL (7.4-10.4); PLATELET COUNT 278 K/uL (130-400); RED BLOOD COUNT 2.84 M/uL (4.7-6.1); WHITE BLOOD COUNT 7.69 K/uL (4.8-10.8)
[2017-01-06 07:24] LABS: BUN/CREATININE RATIO 6.3 (10-20); CALCIUM 8.3 mg/dl (8.5-10.1); CREATININE 0.67 mg/dl (0.60-1.40); POTASSIUM 3.5 mmol/L (3.5-5.1)
[2017-01-06 08:03] VITALS: BP 97/62; PULSE 90; TEMP 36.3; O2SAT 96
[2017-01-06] MEDS: CYANOCOBALAMIN 1000 MCG/ML VIAL IM SCH (08:09)
[2017-01-06] MEDS: SODIUM CHLORIDE 0.9% 1000ML 1,000 ML IV SCH (08:10)
[2017-01-06] MEDS ORDERED: KETAMINE HCL INJ 50 MG/ML 10 ML VIAL ONE (09:31)
[2017-01-06] MEDS ORDERED: LIDOCAINE HCL 2% 2 ML VIAL (20MG/ML) ONE (09:32)
[2017-01-06] MEDS ORDERED: SODIUM CHLORIDE 0.9% INJ 10 ML VIAL ONE (09:32)
[2017-01-06] MEDS ORDERED: PROPOFOL IV EMULSION 10 MG/ML 20 ML VIAL IV ONE ×2 (09:32→10:23)
[2017-01-06 09:39] VITALS: BP 97/62; PULSE 90; TEMP 36.3; O2SAT 96
--- NOTE | 2017-01-06 10:24 | Gastroenterology Progress Note ---
Progress Note Date of Service: Jan 06, 2017 Subjective Pt evaluation today including: conversation w/ patient, physical exam, chart review, lab review, review of studies, review of inpatient medication list CC f/u anemia, GI bleeding HPI Tolerated colon prep, now clear. No abd pain. with patient for H and P and consent Review of Systems Respiratory: No shortness of breath Cardiac: No chest pain Medications Current Inpatient Medications Medications (Trade) Dose Ordered Sig/Johana Route Start Time Stop Time Status Last Admin Dose Admin Sodium Chloride (Nss 1000ml) 1,000 ml @ 100 mls/hr Q10H IV 01/04/17 14:58 02/03/17 14:57 01/06/17 08:10 100 MLS/HR Acetaminophen (Tylenol Tab) 650 mg Q4H PRN PO 01/04/17 15:00 02/03/17 14:59 Al Hydrox/Mg Hydrox/Simethicone (Maalox Max Susp) 15 ml Q4H PRN PO 01/04/17 15:00 02/03/17 14:59 Magnesium Hydroxide (Milk Of Magnesia Susp) 30 ml Q12H PRN PO 01/04/17 15:00 02/03/17 14:59 Ondansetron HCl (Zofran Inj) 4 mg Q6H PRN IV 01/04/17 15:00 02/03/17 14:59 Polyethylene 17 gm 17 gm DAILY PRN PO 01/04/17 15:00 02/03/17 14:59 Pantoprazole Sodium/Dextrose (Protonix Inj/D5 100ml) 100 ml @ 20 mls/hr Q5H IV 01/04/17 19:45 02/03/17 19:44 01/06/17 08:05 20 MLS/HR Cyanocobalamin (Vitamin B-12 Inj) 1,000 mcg DAILY IM 01/05/17 09:00 01/11/17 09:01 01/06/17 08:09 1,000 MCG Metoprolol Tartrate 2.5 mg 2.5 mg Q6 PRN IV 01/05/17 18:00 02/04/17 17:59 Acetaminophen (Ofirmev Iv) 100 ml @ 400 mls/hr Q8H PRN IV 01/06/17 02:45 02/05/17 02:44 Morphine Sulfate (MoRPHine SULFATE INJ) 2 mg Q2H PRN IV 01/06/17 02:45 01/20/17 02:44 01/06/17 08:08 2 MG Objective Vital Signs Date Time Temp Pulse Resp B/P Pulse Ox O2 Delivery O2 Flow Rate FiO2 01/06/17 09:39 36.3 90 20 97/62 96 Room Air 01/06/17 08:03 36.3 90 20 97/62 96 01/06/17 08:00 Room Air 01/06/17 05:59 37.1 95 18 132/82 94 Room Air 01/06/17 04:00 Room Air 01/06/17 03:56 37.1 95 18 132/82 94 Room Air 01/06/17 00:00 Room Air 01/05/17 23:49 37.2 105 20 144/83 98 Room Air 01/05/17 21:49 100 154/90 01/05/17 20:00 Room Air 01/05/17 19:21 37.2 108 16 157/89 95 Room Air 01/05/17 16:00 Room Air 01/05/17 15:22 37.1 84 16 144/82 99 Room Air 01/05/17 14:09 91 132/78 01/05/17 13:30 Room Air 01/05/17 12:40 91 16 132/78 99 Room Air 01/05/17 12:25 86 18 132/73 97 Room Air 01/05/17 12:10 90 16 120/61 96 Room Air 01/05/17 11:07 37.2 99 20 150/85 100 Room Air Physical Exam General Appearance: WD/WN, no apparent distress Respiratory/Chest: lungs clear, no respiratory distress Cardiovascular: no murmur Abdomen: normal bowel sounds, non tender, soft, no organomegaly Laboratory Results Last 24 Hours Test 01/06/17 06:30 White Blood Count 7.69 K/uL Red Blood Count 2.84 M/uL Hemoglobin 9.2 g/dL Hematocrit 28.3 % Mean Corpuscular Volume 99.6 fL Mean Corpuscular Hemoglobin 32.4 pg Mean Corpuscular Hemoglobin Concent 32.5 g/dl RDW Standard Deviation 63.4 fL RDW Coefficient of Variation 17.2 % Platelet Count 278 K/uL Mean Platelet Volume 9.5 fL Sodium Level 143 mmol/L Potassium Level 3.5 mmol/L Chloride Level 110 mmol/L Carbon Dioxide Level 22 mmol/L Anion Gap 11.0 mmol/L Blood Urea Nitrogen 4 mg/dl Creatinine 0.67 mg/dl Est Creatinine Clear Calc Drug Dose 149.6 ml/min Estimated GFR () 124.5 Estimated GFR (Non- 107.4 BUN/Creatinine Ratio 6.3 Random Glucose 97 mg/dl Calcium Level 8.3 mg/dl Assessment and Plan Melena---EGD showed esophagitis and erosive gastritis but not conclusive for source. COLONOSCOPY today. Proc and risks explained to patient which include but not limited to medication reaction, bleeding, perforation, aspiration, and missed lesion Barretts visually on EGD--path pending grade B esophagitis---PPI Erosive gastritis--PPI--path pending Acute blood loss anemia--stable. Elevated MCV--from low B12 needs chronic injection therapy Vittamin B12 deficiency--needs chronic B12 therapy.
--- NOTE | 2017-01-06 10:35 | GI REPORT ---
Procedure Date: 01/06/2017 10:07 AM Procedure: Colonoscopy Indications: Melena with EGD not conclusive as to source Medicines: Monitored Anesthesia Care Complications: No immediate complications. Estimated Blood Loss: Estimated blood loss was minimal. Procedure: Pre-Anesthesia Assessment: - The risks and benefits of the procedure and the sedation options and risks were discussed with the patient. All questions were answered and informed consent was obtained. - Patient identification and proposed procedure were verified prior to the procedure by the physician, the nurse and the longshore equipment operator. The procedure was verified in the procedure room. After I obtained informed consent, the scope was passed under direct vision. Throughout the procedure, the patient's blood pressure, pulse, and oxygen saturations were monitored continuously. The scope was introduced through the anus and advanced to.the cecum. The colonoscopy was technically difficult and complex due to significant looping and a tortuous colon. Successful completion of the procedure was aided by using manual pressure and straightening and shortening the scope to obtain bowel loop reduction. The patient tolerated the procedure well. The bowel preparation used was GoLYTELY. Procedure and risks explained to patient which include but not limited to med reaction, bleeding, perforation, aspiration and missed lesions. Judicious gas insufflation and gas removal done on the way out. Because of length and tortuosity of colon more gas needed than usual. The lumen always well visualized when advancing the scope. Washes and suctioning used as needed for good visuzlization of mucosa. Prep was good. Retroflexion in the rectum to look at the distal rectum and anal canal done. Attempted to intubate ileum but was not successful. Findings: Multiple small and large-mouthed diverticula were found from sigmoid to hepatic flexure. The colon (entire examined portion) was grossly tortuous. Advancing the scope required using manual pressure and straightening and shortening the scope to obtain bowel loop reduction. Barotrauma appreciated in the right colon with mucosal stretch houser and some fresh heme but no evidence of perforation. Estimated blood loss was minimal. The exam was otherwise without abnormality on direct and retroflexion views. Impression: - Diverticulosis from sigmoid to hepatic flexure. - Tortuous colon. - Barotrauma appreciated in the right colon with mucosal stretch houser and some fresh heme but no evidence of perforation. - The examination was otherwise normal on direct and retroflexion views. - No specimens collected. Recommendation: - [facility] patient to [facility] for possible discharge same day. - Recommend patient have outpatient capsule endoscopy to complete workup. Mo May M.D. Mo May MD 01/06/2017 10:34:30 AM This report has been signed electronically. Note Initiated On: 01/06/2017 10:07 AM I attest to the content of the Intraoperative Record and orders documented therein, exceptions below
[2017-01-06 11:20] VITALS: BP 112/68; PULSE 99; TEMP 37
--- NOTE | 2017-01-06 11:22 | Anesthesiology Progress Note ---
Anesthesia Post Op Note Date & Time Jan 06, 2017 at 11:23 Vital Signs Pain Intensity: 0 Vital Signs Past 12 Hours Date Time Temp Pulse Resp B/P Pulse Ox O2 Delivery O2 Flow Rate FiO2 01/06/17 10:58 100 16 118/67 96 Room Air 01/06/17 10:45 104 16 128/71 96 Room Air 01/06/17 10:30 100 16 114/58 93 Room Air 01/06/17 09:53 37.2 95 16 127/69 98 Room Air 01/06/17 09:39 36.3 90 20 97/62 96 Room Air 01/06/17 08:03 36.3 90 20 97/62 96 01/06/17 08:00 Room Air 01/06/17 05:59 37.1 95 18 132/82 94 Room Air 01/06/17 04:00 Room Air 01/06/17 03:56 37.1 95 18 132/82 94 Room Air 01/06/17 00:00 Room Air 01/05/17 23:49 37.2 105 20 144/83 98 Room Air Notes Mental Status: alert / awake / arousable, participated in evaluation Pt Amnestic to Procedure: Yes Nausea / Vomiting: adequately controlled Pain: adequately controlled Airway Patency, RR, SpO2: stable & adequate BP & HR: stable & adequate Hydration State: stable & adequate Anesthetic Complications: no major complications apparent
[2017-01-06] MEDS ORDERED: PANT40TA PO (12:02)
[2017-01-06] MEDS ORDERED: TRAM-453 PO (12:16)
--- NOTE | 2017-01-06 12:16 | Discharge Instructions ---
Discharge Instructions Date of Service Jan 06, 2017. Admission Reason for Admission: Acute blood loss anemia Discharge Discharge Diagnosis / Problem: Acute blood loss anemia, GI bleed, Vitamin b12 deficiency Discharge Goals Goal(s): Improve disease control, Diagnostic testing (capsule endoscopy), Therapeutic intervention (B12 injections) Activity Recommendations Activity Limitations: resume your previous activity Lifting Limitations: none Exercise/Sports Limitations: as tolerated May Resume Sexual Activity: when tolerated Shower/Bathe: no limitations Driving or Machine Use: resume 1 day after discharge (due to sedation from colonoscopy) . Instructions / Follow-Up Instructions / Follow-Up Medications: - PROTONIX: take 40mg daily to treat gastritis and esophagitis - VITAMIN B12: starting Tuesday 01/09, you should have 1000mcg IM daily x 5 days, then you will have 1000mcg IM once a month you should show up to [facility] on Monday for your first treatment, make sure to call in the morning to double check that they are ready for your treatment GI bleed: on EGD you had some esophagitis and gastritis but no active bleeding, these findings are due to ibuprofen use and it is my recommendations that you STOP taking ibuprofen indefinitely. You have been started on Protonix which suppresses acid production and will treat the gastritis. On colonoscopy you have diverticular disease but no active bleeding. [facility] gastroenterology is recommending that you have a capsule endoscopy as an outpatient to evaluate the remainder of your GI tract (small bowels) Anemia: your initial hemoglobin was quite low at 7.5, you received 2 units of blood and your hemoglobin came up to 9.3 and it is stable Vitamin B12 deficiency: most likely you have pernicious anemia since this runs in your family, however, we did not perform any specific tests to confirm this you will be treated with once monthly injections after you complete a week of treatment Back pain: I will prescribe you Ultram to try for the pain since you can no longer use ibuprofen. Try to get by with just Tylenol FOLLOW UP - Dr. Baez in one week, please call [facility] to schedule a hospital follow up appointment - [facility] gastroenterology: please call office to set up a capsule endoscopy and then a follow up with Dr. May after testing complete [phone] Current Hospital Diet Patient's current hospital diet: AHA Diet (Heart Healthy) Discharge Diet Recommended Diet: AHA Diet (Heart Healthy) Procedures Procedures Performed: Colonoscopy - diverticular disease, no polyps, no evidence of bleeding EGD - gastritis, esophagitis, no ulcers, no active bleeding Pending Studies Studies pending at discharge: no Laboratory Results Lipid Panel Test 12/29/16 10:06 Range/Units Triglycerides Level 179 H 0-150 mg/dl Cholesterol Level 123 0-200 mg/dl HDL Cholesterol 27 mg/dl Cholesterol/HDL Ratio 4.6 LDL Cholesterol, Calculated 60 mg/dl Medical Emergencies . Who to Call and When: Medical Emergencies: If at any time you feel your situation is an emergency, please call 911 immediately. . Non-Emergent Contact Non-Emergency issues call your: Primary Care Provider Call Non-Emergent contact if: you have any medication questions . . "Provider Documentation" section prepared by Felipe Devine. VTE Core Measure Inpt VTE Proph given/why not?: Ronny Gagnon, SCD's [place] Drug Monitoring Program Search Results: no issues identified
[2017-01-06] MEDS ORDERED: TRAMADOL HCL 50 MG TAB PO STA (12:27)
[2017-01-06 12:42] VITALS: BP 112/68; PULSE 99; TEMP 37; O2SAT 96
--- NOTE | 2017-01-06 12:44 | Discharge Summary ---
Discharge Summary Date of Service Jan 06, 2017. Discharge Summary Admission Date: Jan 04, 2017 at 15:07 Discharge Date: Jan 06, 2017 Discharge Disposition: Home Principal Diagnosis: GI bleed Problems/Secondary Diagnoses: Acute blood loss anemia Vitamin B 12 deficiency Chronic back pain Procedures: EGD 01/05 - gastritis, esophagitis, Carrasco's, no active bleeding, biopsies taken Colonoscopy 01/06 - diverticular disease, no polyps, no active bleeding Consultations: Gastroenterology Medication Reconciliation New Medications: Pantoprazole (Protonix) 40 Mg Tab 40 MG PO DAILY for 30 Days, #30 TABS 3 Refills Tramadol Hcl (Ultram) 50 Mg Tab 50 MG PO Q8H, #20 TAB PRN PAIN Continued Medications: Acetaminophen (Tylenol) 500 Mg Tab 1000 MG PO DAILY, TAB Fish Oil ([place]-3) 1 Ea Cap 3000 MG PO DAILY, CAP Glucosamine Sulfate (Glucosamine) 1,000 Mg Tab 2000 MG PO DAILY, TAB Magnesium Oxide (Mag-Ox) 400 Mg Tab 400 MG PO DAILY, TAB Metoprolol Succ (Toprol Xl) (Toprol-Xl) 25 Mg Tabcr 25 MG PO DAILY, #30 TAB Rosuvastatin Calcium (Crestor) 5 Mg Tab 5 MG PO Q2D, TAB Discontinued Medications: Ibuprofen (Advil) 200 Mg Tab 200-600 MG PO Q4H, TAB Discharge Exam Patient had colonoscopy today, tolerated well, no active bleeding. Patient seen after his procedure. He was standing in the room, c/o moderate to severe back pain. The pain is chronic and typically controlled with ibuprofen. Now that he has been off the ibuprofen the pain is worse, especially after trying to sleep in a hospital bed. Discussed trying Ultram for pain relief, he agreed with this plan. Also, discussed that he could take more Tylenol, up to 3000mg a day if needed. Discussed results of testing and treatment plan and plan for capsule endoscopy. His at bedside for discussion. All questions answered. Review of Systems: Constitutional: No chills, No fatigue, No fever, No problem reported, No sweats, No weakness, No weight loss Eyes: No diplopia, No discharge, No eye pain, No problem reported, No redness, No worsening of vision ENT: No dental problems, No hearing loss, No nasal symptoms, No problem reported, No sore throat, No tinnitus, No trouble swallowing, No unusual epistaxis Respiratory: No cough, No dyspnea at rest, No dyspnea on exertion, No hemoptysis, No problem reported, No shortness of breath, No sputum, No wheezing Cardiovascular: No PND, No chest pain, No claudication, No edema, No orthopnea, No palpitations, No problem reported Abdomen: No GI bleeding, No constipation, No diarrhea, No nausea, No pain, No problem reported, No vomiting Musculoskeletal: + joint pain (back pain), + muscle pain (low back), No calf pain, No problem reported, No swelling Genitourinary - Male: No dysuria, No hematuria, No urinary frequency, No urinary urgency Neurologic: No balance problems, No memory loss, No numbness/tingling, No paralysis, No problem reported, No vertigo, No weakness Psychiatric: No anhedonism, No anxiety, No depression symptoms, No insomnia , No problem reported, No substance abuse Endocrine: No excessive thirst, No excessive urination, No fatigue, No problem reported Hematologic / Lymphatic: No abnormal bleeding/bruising, No clotting problems , No night sweats, No problem reported, No swollen lymph nodes Integumentary: No bleeding, No color change, No itch, No new/changing skin lesions, No problem reported, No rash Physical Exam: General Appearance: WD/WN, no apparent distress Eyes: normal inspection, EOMI, sclerae normal ENT: normal ENT inspection, hearing grossly normal, pharynx normal Neck: supple, no adenopathy, no JVD, trachea midline Respiratory/Chest: chest non-tender, lungs clear, normal breath sounds, no respiratory distress, no accessory muscle use Cardiovascular: regular rate, rhythm, no edema, no gallop, no JVD, no murmur , normal peripheral pulses Abdomen / GI: normal bowel sounds, non tender, soft, no organomegaly Extremities: normal inspection, no calf tenderness, normal capillary refill , no pedal edema, pelvis stable, + pertinent finding (low draw frame tender to palpation, decreased ROM due to pain) Neurologic/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 Mcfarland is a 56 y/o male with PMHx of HTN, Tachycardia, and HLD who presents to the ED for a low hemoglobin. Hb was 7.5, he was transfused 2 units and responded well with Hb rising to 9.3 by discharge. No further active GI bleeding visualized. He had an EGD which showed gastritis, esophagitis, Carrasco 's, no ulcers or active bleeding, biopsies taken. Colonoscopy also showed no active bleeding. He should have a capsule endoscopy as outpatient. Acute Blood Loss Anemia with GI bleed (melena): Hgb 7.5 on admission, transfused 2 units and up to 9.3 today feeling much better, less fatigue and [place] EGD 01/05: esophagitis, gastritis, but no evidence of ulcers, biopsies taken and GI will notify of results Colonoscopy 01/06: diverticular disease, no active bleeding plan for capsule endoscopy with [facility] as outpatient Gastritis and esophagitis: due to ibuprofen use Protonix 40mg daily for therapy Macrocytosis, Vitamin B12 deficiency: continue Vitamin B12 1000mcg IM daily set up for injections at [facility] starting Tuesday 01/09, he will have 1000mcg IM daily x 5 more days, then set up for once a month can repeat Vitamin B12 level in a 1-2 months Chronic low back pain: was using ibuprofen but now stopped due to gastritis will prescribe Ultram 50mg q8 PRN for pain recommended that he use more Tylenol, currently just takes 1000mg in the AM, told him that can be increased to q8 PRN Significant Heart Murmur heard on admission no murmur on repeat exam, likely a flow murmur, no plans for echocardiogram HTN and Tachycardia: will give a dose of PO Toprol can use PRN IV HLD: chronic, Crestor DVT Prophylaxis: - LINDA/SCDs - Withhold chemical prophylaxis in setting of GI bleed Total Time Spent: Greater than 30 minutes This includes examination of the patient, discharge planning, medication reconciliation, and communication with other providers. Discharge Instructions Please refer to the electronic Patient Visit Report (Discharge Instructions) for additional information. Follow-Up Dr. Baez in one week Dr. May after capsule endoscopy Additional Copies To Yuan Baez M.D.; Mo May M.D.
[2017-01-30] MEDS ORDERED: METO-217 PO (10:37)
[2017-01-30] MEDS ORDERED: VITAMIN B 12 INJ (10:37)
[2017-01-30] MEDS ORDERED: PANT40TA PO (10:37)
[2017-02-09] MEDS ORDERED: FERR325T5 PO (09:35)
[2017-02-13] MEDS ORDERED: SERT50TA PO (10:59)
[2017-06-27] MEDS ORDERED: MULT-506 PO (12:22)
== END 2017-01-06 13:33 | disposition home or self-care (01) | DRG 812 ==
LOC: ENRESERVDT → ENRESERVTM → C.EDB 11:27 → C.2T 15:07
PROVIDERS: ADMIT Internal Medicine; ATTEND Internal Medicine
PROC: 0DB98ZX Excision of Duodenum, Via Natural or Artificial Opening Endoscopic, Diagnostic (ICD-10-PCS; 2017-01-05)
PROC: 0DB38ZX Excision of Lower Esophagus, Via Natural or Artificial Opening Endoscopic, Diagnostic (ICD-10-PCS; 2017-01-05)
PROC: 0DB68ZX Excision of Stomach, Via Natural or Artificial Opening Endoscopic, Diagnostic (ICD-10-PCS; 2017-01-05)
PROC: 0DJD8ZZ Inspection of Lower Intestinal Tract, Via Natural or Artificial Opening Endoscopic (ICD-10-PCS; principal; 2017-01-06 09:50)
DX: D62 Acute posthemorrhagic anemia (principal); K92.1 Melena; E53.8 Deficiency of other specified B group vitamins; G89.29 Other chronic pain; T39.311A Poisoning by propionic acid derivatives, accidental (unintentional), initial encounter; K63.89 Other specified diseases of intestine; M54.5 Low back pain; K29.70 Gastritis, unspecified, without bleeding; K20.9 Esophagitis, unspecified; D75.89 Other specified diseases of blood and blood-forming organs; I10 Essential (primary) hypertension; R00.0 Tachycardia, unspecified; E78.5 Hyperlipidemia, unspecified; Z82.49 Family history of ischemic heart disease and other diseases of the circulatory system; Z83.2 Family history of diseases of the blood and blood-forming organs and certain disorders involving the immune mechanism

== ENCOUNTER 2017-02-24 08:42 | Day surgery (SDC) | payer BC, OTHER ==
[2017-01-30 10:38] VITALS: BMI 29.0
--- NOTE | 2017-01-30 11:15 | PAT Medication Instructions ---
Service Date Jan 30, 2017. Current Home Medication List Acetaminophen (Tylenol), 1,000 MG PO PRN PRN for Pain Fish Oil ([place]-3), 1,000 MG PO TID Glucosamine Sulfate (Glucosamine), 1,000 MG PO BID Magnesium Oxide (Mag-Ox), 400 MG PO QAM Metoprolol Succinate (Toprol Xl), 50 MG PO QPM Pantoprazole (Protonix), 40 MG PO QAM Rosuvastatin Calcium (Crestor), 5 MG PO Q3D [Vitamin B 12], 1 DOSE INJ QMONTH Medication Instructions For Your Scheduled Surgery Vitamin B 12 1 DOSE INJ QMONTH (continue as usual) - Hold the following medications 10 days prior to surgery: Fish Oil ([place]-3), 1,000 MG PO TID Glucosamine Sulfate (Glucosamine), 1,000 MG PO BID - Hold the following medications the morning of surgery: Magnesium Oxide (Mag-Ox), 400 MG PO QAM - Take the following medications the morning of surgery with a sip of water: Pantoprazole (Protonix), 40 MG PO QAM Acetaminophen (Tylenol), 1,000 MG PO PRN PRN for Pain (if needed) - Take the following medications as scheduled the night before surgery: Metoprolol Succinate (Toprol Xl), 50 MG PO QPM Rosuvastatin Calcium (Crestor), 5 MG PO Q3D Acetaminophen (Tylenol), 1,000 MG PO PRN PRN for Pain If you have any questions please call us at [phone] or [phone] ( [place]ma) or [phone]
[2017-01-30 11:46] LABS: BASO % 0.7 %; BASO ABS # 0.05 K/uL (0-0.2); COMPLETE YES; EOS % 1.4 %; HEMATOCRIT 38.4 % (42-52); IG% 0.1 %; LYMPH % 17.7 %; LYMPH ABS # 1.26 K/uL (1.2-3.4); MEAN CELL VOLUME 93.7 fL (80-100); MEAN CORPUSCULAR HEMOGLOBIN 30.5 pg (25-34); MEAN CORPUSCULAR HGB CONC 32.6 g/dl (32-36); MEAN PLATELET VOLUME 10.3 fL (7.4-10.4); NEUT % 69.1 %; PLATELET COUNT 284 K/uL (130-400); WHITE BLOOD COUNT 7.12 K/uL (4.8-10.8)
[2017-01-30 11:47] LABS: URINE APPEARANCE CLEAR (CLEAR); URINE BILIRUBIN NEG (NEG); URINE COLOR YELLOW; URINE NITRITE NEG (NEG); UROBILINOGEN NEG (NEG)
[2017-01-30 11:51] LABS: MANUAL MICROSCOPIC REQUIRED? NO; REVIEW REQ? NO
[2017-01-30 12:05] LABS: INR 0.9 (0.9-1.1); PARTIAL THROMBOPLASTIN RATIO 1.1; PROTHROMBIN TIME (PATIENT) 10.1 SECONDS (9.0-12.0)
--- NOTE | 2017-02-20 15:47 | HISTORY & PHYSICAL EXAMINATION ---
DATE OF ADMISSION: 02/24/2017 PREOPERATIVE HISTORY AND PHYSICAL CHIEF COMPLAINT: Right knee pain. HISTORY OF PRESENT ILLNESS: The patient is a 57-year-old male who presents with right knee pain. He states that the symptoms occur occasionally, more so with walking up and downstairs. He also noticed a locking sensation. He describes the pain as being aching, sharp and throbbing. The patient had a previous MRI that demonstrated a horizontal tear in the medial meniscus and mild osteoarthritis, small knee effusion and a 1.9 cm ganglion cyst adjacent to the fibular head. The patient would like to proceed with a right knee PMM. PAST MEDICAL HISTORY: Significant for hypertension and hypercholesterolemia. PAST SURGICAL HISTORY: Inguinal hernia repair, left knee scope and hydrocele. SOCIAL HISTORY: He drinks alcohol occasionally. He denies smoking or tobacco use. He denies IV drug use. FAMILY HISTORY: Noncontributory. ALLERGIES: PENICILLIN AND HYDROCODONE. MEDICATIONS: Crestor 5 mg every third day, metoprolol succinate ER 50 mg daily, magnesium 200 mg 2 tabs daily, fish oil, extra strength Tylenol 500 mg 2 tabs every 6 hours as needed for pain, pantoprazole 40 mg 1 tab daily, glucosamine and ibuprofen 200 mg 1 tab every 6 hours as needed for pain. OBJECTIVE: GENERAL APPEARANCE: The patient is a 57-year-old male who is sitting in no acute distress, well dressed, well nourished. He is awake, alert and oriented x3. VITAL SIGNS: Height 6 feet tall, weight 214 pounds, blood pressure 140/90. HEENT: Extraocular movements are intact. PERRLA. Mucosa was moist. No septal deviation. NECK: Supple with no lymphadenopathy, no JVD, no thyromegaly. HEART: Regular rate and rhythm. No murmurs or gallops. LUNGS: Clear to auscultation. No wheezing or rhonchi. ABDOMEN: Soft, nontender, nondistended. Normal bowel sounds, no hepatosplenomegaly. EXTREMITIES: Paying particular attention to his right knee. He has medial joint line tenderness. He has active extension to 0 degrees, active flexion to 120 degrees. He has a positive Minerva test. He has negative Eber, negative anterior drawer, and negative posterior drawer. Negative valgus and varus stress. NEUROLOGIC: Cranial nerves II-XII are intact. Pulses were compared bilaterally and were equal. IMAGING: MRI of the right knee demonstrates a horizontal tear of the medial meniscus, mild osteoarthritis, small knee effusion and a 1.9 cm ganglion cyst adjacent to the fibular head. IMPRESSION: Right medial meniscal tear. PLAN: The patient is scheduled for a right knee PMM. The patient has failed conservative therapy of cortisone injections and physical therapy. He has noted that this has decreased his quality of life due to the locking mechanism as well as difficulty going up and downstairs. He is scheduled for a right knee PMM. Risks and benefits to surgery were discussed and included but not limited to infection, DVT, pain, stiffness, need for revision surgery, failure to relieve all symptoms, progressive arthritis, damage to blood vessels, damage to nerves, risks of anesthesia and were all discussed and he wishes to proceed. No DVT prophylaxis is needed at this time. Discharge will be home with an outpatient physical therapy. JOLEEN
[~2017-02-24] VITALS: Ht 182.9 cm; Wt 93.9 kg
[~2017-02-24 08:42] MED LIST changes: +ACET-1256 PO; -ANTIFUNGAL TOP; -ASCA500 PO; -ASPEC325 PO; +BUPIVACAINE 0.25% 30 ML VIAL ONE; +BUPIVACAINE 0.5 % 5 MG/1 ML PF 10ML VIAL ONE; -CALCTAB5 PO; +CLINDAMYCIN 600 MG/54 ML D5W IV SCH; -CPRUNK PO; +FERR325T5 PO; -GLCSC750600 PO; +GLUC10007 PO; +LACTATED RINGER'S 1000ML 1,000 ML IV SCH; -LRTUNK PO; +MAGN400T6 PO; +METO-217 PO; +OMEG10007 PO; +PANT40TA PO; +ROSU5TAB PO; +SERT50TA PO; +VITAMIN B 12 INJ
[2017-02-24 09:10] VITALS: BP 152/98; PULSE 81; TEMP 36.7; O2SAT 99; Ht 182.9 cm; Wt 93.9 kg
[2017-02-24] MEDS ORDERED: DEXAMETHASONE SOD INJ 4 MG/ML VIAL ONE (10:50)
[2017-02-24] MEDS ORDERED: ONDANSETRON INJ 2 MG/ML 2 ML VIAL ONE (10:50)
[2017-02-24] MEDS ORDERED: PROPOFOL IV EMULSION 10 MG/ML 20 ML VIAL IV ONE ×2 (10:50→11:52)
[2017-02-24] MEDS ORDERED: MIDAZOLAM HCL 1 MG/ML 2ML VIAL ONE (10:50)
[2017-02-24] MEDS ORDERED: LIDOCAINE HCL 2% 2 ML VIAL (20MG/ML) ONE (10:50)
[2017-02-24] MEDS ORDERED: FENTANYL CITRATE INJ 50 MCG/1 ML 2 ML VIAL ONE ×2 (10:50→12:13)
[2017-02-24] MEDS ORDERED: ATROPINE SULFATE 0.1 MG/ML 5ML SYR IV PRN (11:15)
[2017-02-24] MEDS ORDERED: FENTANYL CITRATE INJ 50 MCG/1 ML 2 ML VIAL IV PRN (11:15)
[2017-02-24] MEDS ORDERED: LABETALOL HCL IV 5 MG/ML 20ML IV PRN (11:15)
[2017-02-24] MEDS ORDERED: ONDANSETRON INJ 2 MG/ML 2 ML VIAL IV PRN ×2 (11:15→12:15)
[2017-02-24] MEDS ORDERED: KETOROLAC TROMETHAMINE 30 MG/ML VIAL IV. PRN (11:15)
[2017-02-24] MEDS ORDERED: LIDOCAINE/EPINEPHRINE 1% 20 ML VIAL ONE (11:21)
[2017-02-24] MEDS ORDERED: BUPIVACAINE 0.5 % 5 MG/1 ML MPF 30ML VIAL ONE (11:22)
[2017-02-24] MEDS ORDERED: TRAM-10 PO (12:05)
--- NOTE | 2017-02-24 12:09 | Discharge Instructions ---
Discharge Instructions Date of Service Feb 24, 2017. Admission Reason for Admission: Right Knee Medical Meniscus Tear Discharge Discharge Diagnosis / Problem: Right Knee Partial Medial Meniscectomy, Chondroplasty femoral condyle Discharge Goals Goal(s): Decrease discomfort, Improve function Activity Recommendations Activity Limitations: per Instructions/Follow-up section . Instructions / Follow-Up Instructions / Follow-Up ACTIVITY RECOMMENDATIONS: * You may walk on the leg with or without crutches as comfort permits. * Bending of the knee should start at once. * Do not shower for 48 hours following surgery. SPECIAL CARE INSTRUCTIONS: * You may cleanse the skin adjacent to the small wounds with soap and water at the time of the first dressing change. * The application of an ice bag to the front and sides of the knee will decrease swelling and discomfort for the first 48 hours. * The small incisions may be sore and develop bruising. This bruising does not require any special care. SPECIAL PRECAUTIONS: * If you experience unusual pain unrelieved by prescriptions, temperature elevation (100 degrees F. or above) or progressive swelling or bleeding, you should contact our office at for further evaluation. * You may have been prescribed pain medication. If you experience nausea and/or fine skin rash, discontinue this medication and contact our office at for an alternate medication. DRESSING: * Dressing should be comfortable and absorb any leakage of fluid and/or blood. * The dressing may become moist or bloodstained. * Dressing may be removed 48 hours after surgery and bandaids placed over the small surgical incisions. If can be removed sooner if it becomes very soiled or loose. * Bandaids may be used over next several days as needed and can be discontinued when there is not further drainage from the wounds. FOLLOW UP VISIT: If appointment is not already scheduled: Please call [facility] to make a follow-up appointment for your surgery at with Dr. Spear or his PA 10-14 days after your surgery. Current Hospital Diet Patient's current hospital diet: Regular Diet Discharge Diet Recommended Diet: Regular Diet Pending Studies Studies pending at discharge: no Laboratory Results Lipid Panel Test 12/29/16 10:06 Range/Units Triglycerides Level 179 H 0-150 mg/dl Cholesterol Level 123 0-200 mg/dl HDL Cholesterol 27 mg/dl Cholesterol/HDL Ratio 4.6 LDL Cholesterol, Calculated 60 mg/dl Medical Emergencies . Who to Call and When: Medical Emergencies: If at any time you feel your situation is an emergency, please call 911 immediately. . Non-Emergent Contact Non-Emergency issues call your: Surgeon Call Non-Emergent contact if: temperature is above 101.5, your pain is worsening, wound has increased drainage, wound has increased redness . "Provider Documentation" section prepared by Spike Gonzalez. . VTE Core Measure Inpt VTE Proph given/why not?: Treatment not indicated [place] Drug Monitoring Program Search Results: patient reviewed within database, no issues identified
[2017-02-24] MEDS ORDERED: ACETAMINOPHEN 325 MG TAB PO PRN (12:15)
--- NOTE | 2017-02-24 12:35 | [facility] Post Operative Brief Note ---
Immediate Operative Summary Operative Date Feb 24, 2017. Pre-Operative Diagnosis Right knee medial meniscal tear Post-Operative Diagnosis Right knee medial and lateral meniscal tear Procedure(s) Performed Right Knee Arthroscopy with Partial Medial and lateral Menisectomy, Chondroplasty of patella Surgeon Dr. Spear [employer] Assistant Surgeon(s) 0 Estimated Blood Loss minimal Findings geta Specimens None, as per surgeon Drains 0 Anesthesia geta Complication(s) None Disposition Recovery Room / PACU
[2017-02-24] MEDS ORDERED: KETOROLAC TROMETHAMINE 30 MG/ML VIAL ONE (12:52)
--- NOTE | 2017-02-24 12:59 | OPERATIVE REPORT ---
DATE OF OPERATION: 02/24/2017 PREOPERATIVE DIAGNOSES: Right knee medial meniscal tear, chondromalacia medial femoral condyle. POSTOPERATIVE DIAGNOSES: Same plus lateral meniscal tear and chondromalacia patella. PROCEDURE: Right knee partial medial meniscectomy, partial lateral meniscectomy, and chondroplasty patella. SURGEON: Dr. Spear. BAG VALVER: None. ANESTHESIA: General endotracheal anesthesia. SPECIMENS: None. COMPLICATIONS: None. ESTIMATED BLOOD LOSS: Minimal. INDICATIONS: The patient is a 57-year-old male who had progressive right knee pain. MRI demonstrated complex tear of the posterior horn of the medial meniscus. He wished to proceed with arthroscopy. Risks, benefits, and alternatives of surgery including but not limited to infection, DVT, pain, stiffness, need for urgent surgery, failure to relieve all symptoms, damage to blood vessels, damage to nerves, risks of anesthesia were discussed with the patient and he wished to proceed. DESCRIPTION OF PROCEDURE: The patient was identified, laterality was confirmed and marked. He received a preoperative antibiotic. He was transferred to operating room and placed in the supine position, induced general endotracheal anesthesia. A well-padded tourniquet was placed on the leg but not utilized during the case. Limb was prepped and draped in the usual sterile manner with ChloraPrep. Port sites were anesthetized with 1% lidocaine with epinephrine. I made a standard anterolateral viewing portal, made a stab incision, bluntly entered the suprapatellar pouch and spinal localization established anteromedial portal. He had grade 2 changes undersurface of the patella. Unstable chondral flaps were debrided back to a stable base utilizing a shaver. Some mild grade 1 change of cartilage of the medial femoral condyle, no unstable chondral flaps were identified. A large complex tear of the posterior horn of the medial meniscus with both radial as well as horizontal cleavage type tearing. This was debrided back to a stable base utilizing combination of alec as well as meniscal biter. ACL and PCL were intact. There was degenerative tearing of the posterior horn of the lateral meniscus, it was debrided utilizing a shaver. All instrumentation was then removed from the knee. Portal sites were closed with nylon. Sterile dressing was applied. All needle and sponge counts were correct at the end of the procedure. The patient was transferred to the PACU in stable condition without apparent complication. I attest to the content of the Intraoperative Record and any orders documented therein. Any exceptio ns are noted below.
--- NOTE | 2017-02-24 13:27 | Anesthesiology Progress Note ---
Anesthesia Post Op Note Date & Time Feb 24, 2017 at 13:27 Vital Signs Vital Signs Past 12 Hours Date Time Temp Pulse Resp B/P Pulse Ox O2 Delivery O2 Flow Rate FiO2 02/24/17 13:22 36.8 02/24/17 13:20 115/73 02/24/17 13:18 78 15 02/24/17 13:18 75 15 95 02/24/17 13:14 125/89 02/24/17 13:13 83 18 91 02/24/17 13:13 83 18 02/24/17 13:10 126/86 02/24/17 13:08 84 15 95 02/24/17 13:08 83 15 02/24/17 13:04 128/87 02/24/17 13:03 76 16 02/24/17 13:03 70 16 95 02/24/17 13:02 84 16 02/24/17 13:02 86 16 98 02/24/17 12:59 137/95 02/24/17 12:57 67 12 02/24/17 12:57 67 12 100 02/24/17 12:55 136/90 02/24/17 12:52 79 15 02/24/17 12:52 81 15 100 02/24/17 12:49 141/89 02/24/17 12:47 82 22 02/24/17 12:47 82 22 100 02/24/17 12:45 133/87 02/24/17 12:42 36.9 81 16 138/91 100 Mask 10 02/24/17 12:42 85 13 138/91 100 02/24/17 12:42 85 13 02/24/17 09:10 36.7 81 20 152/98 99 Room Air Notes Mental Status: alert / awake / arousable, participated in evaluation Pt Amnestic to Procedure: Yes Nausea / Vomiting: adequately controlled Pain: adequately controlled Airway Patency, RR, SpO2: stable & adequate BP & HR: stable & adequate Hydration State: stable & adequate Anesthetic Complications: no major complications apparent
[2017-02-24 13:40] VITALS: BP 133/75; PULSE 77; TEMP 36.6; O2SAT 92
[2017-02-24 14:10] VITALS: BP 142/87; PULSE 91; O2SAT 96
[2017-02-24 14:40] VITALS: BP 142/96; PULSE 93; TEMP 36.4; O2SAT 94
[2017-06-27] MEDS ORDERED: MULT-506 PO (12:22)
== END 2017-02-24 15:10 | disposition home or self-care (01) ==
LOC: C.ACU 08:42
PROVIDERS: ATTEND Orthopaedic Surgery
DX: S83.231A Complex tear of medial meniscus, current injury, right knee, initial encounter (principal); M23.251 Derangement of posterior horn of lateral meniscus due to old tear or injury, right knee; X58.XXXA Exposure to other specified factors, initial encounter; M22.41 Chondromalacia patellae, right knee; I10 Essential (primary) hypertension; M19.90 Unspecified osteoarthritis, unspecified site; E78.00 Pure hypercholesterolemia, unspecified; Z88.0 Allergy status to penicillin; Z98.890 Other specified postprocedural states; Z79.899 Other long term (current) drug therapy; Z68.29 Body mass index [BMI] 29.0-29.9, adult

== ENCOUNTER → 2017-04-17 | Outpatient (CLI) | payer OTHER ==
[~2017-04-17] MED LIST changes: -BUPIVACAINE 0.25% 30 ML VIAL ONE; -BUPIVACAINE 0.5 % 5 MG/1 ML PF 10ML VIAL ONE; -CLINDAMYCIN 600 MG/54 ML D5W IV SCH; -LACTATED RINGER'S 1000ML 1,000 ML IV SCH; +MULT-506 PO; +TRAM-10 PO
[2017-04-17 12:54] LABS: BASO % 0.9 %; BASO ABS # 0.07 K/uL (0-0.2); COMPLETE YES; EOS % 1.8 %; HEMATOCRIT 44.8 % (42-52); IG% 0.4 %; LYMPH % 20.7 %; LYMPH ABS # 1.61 K/uL (1.2-3.4); MEAN CELL VOLUME 92.6 fL (80-100); MEAN CORPUSCULAR HEMOGLOBIN 30.4 pg (25-34); MEAN CORPUSCULAR HGB CONC 32.8 g/dl (32-36); MEAN PLATELET VOLUME 10.3 fL (7.4-10.4); MONO % 9.5 %; NEUT % 66.7 %; PLATELET COUNT 225 K/uL (130-400); RED BLOOD COUNT 4.84 M/uL (4.7-6.1); WHITE BLOOD COUNT 7.77 K/uL (4.8-10.8)
[2017-04-17 13:23] LABS: ALT/SGPT 45 U/L (12-78); BLOOD UREA NITROGEN 6 mg/dl (7-18); CARBON DIOXIDE 26 mmol/L (21-32); CHLORIDE 107 mmol/L (98-107); CHOLESTEROL 230 mg/dl (0-200); GLUCOSE 98 mg/dl (70-99); POTASSIUM 4.3 mmol/L (3.5-5.1); SODIUM 141 mmol/L (136-145); TRIGLYCERIDES 177 mg/dl (0-150); VERY LOW DENSITY LIPOPROT CALC 35 mg/dl
[2017-04-17 13:24] LABS: CALCIUM 9.1 mg/dl (8.5-10.1)
[2017-04-17 13:31] LABS: ESTIMATED AVERAGE GLUCOSE 126 mg/dl; HA1C FLAG Normal (Normal)
[2017-04-17 13:35] LABS: ALB/GLOB RATIO 0.9 (0.9-2); ALKALINE PHOSPHATASE 94 U/L (45-117); AST/SGOT 42 U/L (15-37); CHOLESTEROL/HDL RATIO 6.4; HDL CHOLESTEROL 36 mg/dl; LDL CHOLESTEROL CALCULATED 159 mg/dl
== END | disposition home or self-care (01) ==
LOC: C.LABPVFM 10:03
PROVIDERS: ATTEND Family Medicine
DX: K92.1 Melena (principal); D50.0 Iron deficiency anemia secondary to blood loss (chronic); E53.8 Deficiency of other specified B group vitamins; I10 Essential (primary) hypertension; R73.9 Hyperglycemia, unspecified; E78.5 Hyperlipidemia, unspecified; R00.2 Palpitations

== ENCOUNTER → 2017-06-26 | Outpatient (CLI) | payer OTHER ==
--- NOTE | 2017-06-26 08:18 | DIAGNOSTIC IMAGING REPORT ---
ABDOMINAL ULTRASOUND COMPLETE HISTORY: Right upper quadrant fullness.. COMPARISON: None. FINDINGS: Pancreas: The pancreatic tail is obscured by overlying bowel gas. The remaining portions of the pancreas are within normal limits. Liver: The liver is echogenic consistent with fatty change. The liver is mildly enlarged measuring 20 cm in length. Gallbladder: No gallbladder wall thickening. No gallstones. CBD: 4 mm. Kidneys: No hydronephrosis. Spleen: Normal in size. Aorta: Normal in caliber. IVC: Patent. IMPRESSION: 1. Normal gallbladder. No gallstones. 2. Hepatomegaly demonstrating fatty change. Electronically signed by: Casey Gray M.D. 06/26/2017 8:16 AM Dictated Date/Time: 06/26/2017 8:14 AM
== END | disposition home or self-care (01) ==
LOC: C.ULTR 07:43
PROVIDERS: ATTEND Internal Medicine Gastroenterology
DX: R19.8 Other specified symptoms and signs involving the digestive system and abdomen (principal)

== ENCOUNTER → 2017-08-09 | Day surgery (SDC) | payer OTHER ==
[2017-07-31 12:37] VITALS: Ht 182.9 cm; Wt 97.3 kg
[~2017-08-09] VITALS: Ht 182.9 cm; Wt 97.3 kg
[~2017-08-09] MED LIST changes: +LIDOCAINE HCL 2% 2 ML VIAL (20MG/ML) ONE; +PROPOFOL IV EMULSION 10 MG/ML 20 ML VIAL IV ONE; +SODIUM CHLORIDE 0.9% 500ML 500 ML IV ONE; -TRAM-10 PO
[2017-08-09 12:39] VITALS: TEMP 37.2
--- NOTE | 2017-08-09 13:25 | Endo History and Physical ---
History & Physical Date of Service: Aug 09, 2017. Chief Complaint: Diverticulosis of small intestine Referring Physician: Nestor History of Present Illness anemia; occult GI bleeding Past Surgical History Hx Cardiac Surgery: No Hx Internal Defibrillator: No Hx Pacemaker: No Hx Abdominal Surgery: Yes (HERNIA) Hx of Implantable Prosthesis: No Hx Post-Op Nausea and Vomiting: No Hx Cancer Surgery: No Hx Thoracic Surgery: No Hx Orthopedic: Yes (RT X2/LT KNEE ARTHROSCOPY) Hx Urinary Tract Surgery: Yes (HYDROCELECTOMY) Family History Esophogeal CA Social History Smoking Status: Never Smoker Hx Substance Use: No Hx Alcohol Use: Yes (12 DRINKS/WEEK) Allergies Coded Allergies: BEE STING (Unverified Allergy, Unknown, anaphylaxis, 08/09/17) Oxycodone (Unverified Allergy, Unknown, per PCP records , 08/09/17) Penicillins (Verified Allergy, Unknown, RASH, 08/09/17) Hydrocodone (Unverified Adverse Reaction, Unknown, SEVERE NAUSE AND VOMITING, 08/09/17) Current Medications Reported Home Medications Medications Dose Route/Sig Max Daily Dose Days Date Category Multivitamin (Multivitamins) Tab 1 Tab PO QAM 06/27/17 Reported Zoloft (Sertraline HCl) 50 Mg Tab 1 Tab PO PM 02/13/17 Reported Ferrous Sulfate 325 Mg Tab 1 Tab PO QAM 02/09/17 Reported [Vitamin B 12] 1 Dose INJ QMONTH 01/30/17 Reported Protonix (Pantoprazole Sodium) 40 Mg Tab 40 Mg PO QAM 01/30/17 Reported Toprol Xl (Metoprolol Succinate) 50 Mg Tabcr 1.5 Tab PO QPM 01/30/17 Reported Tylenol (Acetaminophen) 500 Mg Tab 1,000 Mg PO PRN PRN 01/04/17 Reported Glucosamine (Glucosamine Sulfate) 1,000 Mg Tab 1,000 Mg PO BID 01/04/17 Reported Mag-Ox (Magnesium Oxide) 400 Mg Tab 400 Mg PO QAM 01/04/17 Reported [place]-3 (Fish Oil) 1 Ea Cap 1,000 Mg PO TID 01/04/17 Reported Crestor (Rosuvastatin Calcium) 5 Mg Tab 5 Mg PO Q2D 01/04/17 Reported Vital Signs Weight (Kilograms): 97.27 Height (Feet): 6 Height (Inches): 0 Date Time Temp Pulse Resp B/P (MAP) Pulse Ox O2 Delivery O2 Flow Rate FiO2 08/09/17 12:39 37.2 73 18 148/87 (107) 93 Room Air Physical Exam AAOx3 Nls1s2 Lungs CTA Abd soft NT/ND + BS -CCE Assessment and Plan EGD/SB enteroscopy
--- NOTE | 2017-08-09 14:05 | Discharge Instructions ---
Endoscopy Patient Instructions Date / Procedure(s) Performed Aug 09, 2017. Colonoscopy, Push Enteroscopy, EGD Allergy Information Coded Allergies: BEE STING (Unverified Allergy, Unknown, anaphylaxis, 08/09/17) Oxycodone (Unverified Allergy, Unknown, per PCP records , 08/09/17) Penicillins (Verified Allergy, Unknown, RASH, 08/09/17) Hydrocodone (Unverified Adverse Reaction, Unknown, SEVERE NAUSE AND VOMITING, 08/09/17) Discharge Date / Findings Aug 09, 2017. 1) BE- bx'd 2) SB diverticulum 3) ? faintly scalloped mucosa Medication Instructions Restart Stopped Medication(s): Reported Home Medications Medications Dose Route/Sig Max Daily Dose Days Date Category Multivitamin (Multivitamins) Tab 1 Tab PO QAM 06/27/17 Reported Zoloft (Sertraline HCl) 50 Mg Tab 1 Tab PO PM 02/13/17 Reported Ferrous Sulfate 325 Mg Tab 1 Tab PO QAM 02/09/17 Reported [Vitamin B 12] 1 Dose INJ QMONTH 01/30/17 Reported Protonix (Pantoprazole Sodium) 40 Mg Tab 40 Mg PO QAM 01/30/17 Reported Toprol Xl (Metoprolol Succinate) 50 Mg Tabcr 1.5 Tab PO QPM 01/30/17 Reported Tylenol (Acetaminophen) 500 Mg Tab 1,000 Mg PO PRN PRN 01/04/17 Reported Glucosamine (Glucosamine Sulfate) 1,000 Mg Tab 1,000 Mg PO BID 01/04/17 Reported Mag-Ox (Magnesium Oxide) 400 Mg Tab 400 Mg PO QAM 01/04/17 Reported [place]-3 (Fish Oil) 1 Ea Cap 1,000 Mg PO TID 01/04/17 Reported Crestor (Rosuvastatin Calcium) 5 Mg Tab 5 Mg PO Q2D 01/04/17 Reported Reported Home Medications Medications Dose Route/Sig Max Daily Dose Days Date Category Multivitamin (Multivitamins) Tab 1 Tab PO QAM 06/27/17 Reported Zoloft (Sertraline HCl) 50 Mg Tab 1 Tab PO PM 02/13/17 Reported Ferrous Sulfate 325 Mg Tab 1 Tab PO QAM 02/09/17 Reported [Vitamin B 12] 1 Dose INJ QMONTH 01/30/17 Reported Protonix (Pantoprazole Sodium) 40 Mg Tab 40 Mg PO QAM 01/30/17 Reported Toprol Xl (Metoprolol Succinate) 50 Mg Tabcr 1.5 Tab PO QPM 01/30/17 Reported Tylenol (Acetaminophen) 500 Mg Tab 1,000 Mg PO PRN PRN 01/04/17 Reported Glucosamine (Glucosamine Sulfate) 1,000 Mg Tab 1,000 Mg PO BID 01/04/17 Reported Mag-Ox (Magnesium Oxide) 400 Mg Tab 400 Mg PO QAM 01/04/17 Reported [place]-3 (Fish Oil) 1 Ea Cap 1,000 Mg PO TID 01/04/17 Reported Crestor (Rosuvastatin Calcium) 5 Mg Tab 5 Mg PO Q2D 01/04/17 Reported Provider Instructions Activity Restrictions - No exercising or heavy lifting for 24 hours. - Do not drink alcohol the day of the procedure. - Do not drive a car or operate machinery until the day after the procedure. - Do not make any important decisions or sign important papers in 24 hours after the procedure. Following Day: - Return to full activity which may include returning to work/school. Diet Start your diet with liquids and light foods (jello, soup, juice, toast). Then eat your usual diet if not nauseated. Treatment For Common After Affects For mild abdominal pain, bloating, or excessive gas: - Rest - Eat lightly - Lie on right side Follow-Up Information Follow-up with Nestor as scheduled Anesthesia Information What You Should Know You have had a procedure that required some medicine to reduce anxiety and discomfort. This treatment is called moderate sedation. After receiving the treatment, you may be sleepy, but you will be able to breathe on your own. The effects of the treatment may last for several hours. Follow these instructions along with Activity/Diet recommendations noted above: * Do NOT do anything where dizziness or clumsiness would be dangerous. * Rest quietly at home today, then you can be up and about tomorrow. * Have a responsible person stay with you the rest of today. * You may have had an I.V. today. If so, you may take the dressing off later today. Recommendations Call your doctor if: * Trouble breathing * Continuous vomiting for more than 24 hours * Temperature above 101 degrees * Severe abdominal pain or bloating * Pain not relieved by pain medicine ordered * There is increased drainage or redness from any incision * A large amount of rectal bleeding greater than 2-3 tablespoons. (If you had a polyp/s removed or have hemorrhoids, a small amount of blood - from the rectum is to be expected.) * You have any unanswered questions or concerns. IN THE EVENT OF A SERIOUS EMERGENCY, GO TO THE NEAREST EMERGENCY ROOM Your discharge instructions were prepared by provider Tobias Glover. Patient Instructions Signature Page Richi Mcfarland Patient (or Guardian) Signature/Date: I have read and understand the instructions given to me by my caregivers. Caregiver/RN/Doctor Signature/Date: The above-named patient and/or guardian has received patient instructions on this date. + Original Patient Signature Page (only) stays with chart. Please make copy for patient.
--- NOTE | 2017-08-09 14:17 | GI REPORT ---
Procedure Date: 08/09/2017 1:19 PM Procedure: Small bowel enteroscopy Indications: Suspected upper gastrointestinal bleeding in patient with chronic blood loss, Gastrointestinal bleeding of unknown origin Medicines: Propofol per Anesthesia Complications: No immediate complications. Estimated blood loss: Minimal. Estimated Blood Loss: Estimated blood loss was minimal. Procedure: Pre-Anesthesia Assessment: - Prior to the procedure, a History and Physical was performed, and patient medications and allergies were reviewed. The patient's tolerance of previous anesthesia was also reviewed. The risks and benefits of the procedure and the sedation options and risks were discussed with the patient. All questions were answered, and informed consent was obtained. Prior Anticoagulants: The patient has taken no previous anticoagulant or antiplatelet agents. ASA Grade Assessment: III - A patient with severe systemic disease. After reviewing the risks and benefits, the patient was deemed in satisfactory condition to undergo the procedure. After obtaining informed consent, the endoscope was passed under direct vision. Throughout the procedure, the patient's blood pressure, pulse, and oxygen saturations were monitored continuously. The scope was introduced through the mouth, and advanced to the mid-jejunum. After obtaining informed consent, the endoscope was passed under direct vision. Throughout the procedure, the patient's blood pressure, pulse, and oxygen saturations were monitored continuously.The upper GI endoscopy was accomplished without difficulty. The patient tolerated the procedure well. Findings: The esophagus and gastroesophageal junction were examined with white light. 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 These changes involved the mucosa at the upper extent of the gastric folds (43 cm from the incisors) extending to the Z-line (36 cm from the incisors). Circumferential salmon-colored mucosa was present at 38 cm and one tongue of salmon-colored mucosa was present at 36 cm. The maximum longitudinal extent of these esophageal mucosal changes was 5 cm in length. Mucosa was biopsied with a cold forceps for histology randomly at intervals of 2 cm. Verification of patient identification for the specimen was done by the physician and eligibility technician using the patient's name and medical record number. The entire examined stomach was normal. A small hiatus hernia was present. The duodenal bulb was normal. Localized mildly scalloped mucosa was found at 2nd part of the duodenum. Biopsies for histology were taken with a cold forceps for evaluation of celiac disease. The exam of the duodenum was otherwise normal. A 20 mm non-bleeding diverticulum was found in the jejunum. Exam of the jejunum was otherwise normal. The cardia and gastric fundus were normal on retroflexion. 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 Biopsied. - Normal stomach. - Small hiatus hernia. - Normal duodenal bulb. - Scalloped mucosa was found in the duodenum, rule out celiac disease. Biopsied. - Non-bleeding jejunal diverticulum. Recommendation: - Discharge patient to home (ambulatory). - Resume regular diet. - Await pathology results. - Return to GI clinic as previously scheduled. MD Tobias Martinez MD 08/09/2017 2:17:13 PM This report has been signed electronically. Note Initiated On: 08/09/2017 1:19 PM I attest to the content of the Intraoperative Record and orders documented therein, exceptions below
--- NOTE | 2017-08-09 14:25 | Anesthesiology Progress Note ---
Anesthesia Post Op Note Date & Time Aug 09, 2017 at 14:25 Vital Signs Pain Intensity: 0 Vital Signs Past 12 Hours Date Time Temp Pulse Resp B/P (MAP) Pulse Ox O2 Delivery O2 Flow Rate FiO2 08/09/17 14:08 80 18 111/63 (79) 97 Room Air 08/09/17 12:39 37.2 73 18 148/87 (107) 93 Room Air Notes Mental Status: alert / awake / arousable, participated in evaluation Pt Amnestic to Procedure: Yes Nausea / Vomiting: adequately controlled Pain: adequately controlled Airway Patency, RR, SpO2: stable & adequate BP & HR: stable & adequate Hydration State: stable & adequate Anesthetic Complications: no major complications apparent
[2017-08-09 14:46] VITALS: BP 111/75; PULSE 75; O2SAT 97
== END | disposition home or self-care (01) ==
LOC: C.GI 11:54
PROVIDERS: ATTEND Internal Medicine Gastroenterology
DX: K57.10 Diverticulosis of small intestine without perforation or abscess without bleeding (principal); I10 Essential (primary) hypertension; E78.5 Hyperlipidemia, unspecified; K44.9 Diaphragmatic hernia without obstruction or gangrene; Z80.0 Family history of malignant neoplasm of digestive organs

== ENCOUNTER → 2017-10-13 | Outpatient (CLI) | payer OTHER ==
[~2017-10-13] MED LIST changes: -LIDOCAINE HCL 2% 2 ML VIAL (20MG/ML) ONE; -PROPOFOL IV EMULSION 10 MG/ML 20 ML VIAL IV ONE; -SODIUM CHLORIDE 0.9% 500ML 500 ML IV ONE
[2017-10-13 13:01] LABS: ESTIMATED AVERAGE GLUCOSE 108 mg/dl; HA1C FLAG Normal (Normal)
[2017-10-13 13:12] LABS: ALT/SGPT 41 U/L (12-78); AST/SGOT 33 U/L (15-37); BLOOD UREA NITROGEN 5 mg/dl (7-18); BUN/CREATININE RATIO 7.5 (10-20); CARBON DIOXIDE 31 mmol/L (21-32); CHLORIDE 105 mmol/L (98-107); CHOLESTEROL 219 mg/dl (0-200); CREATININE 0.71 mg/dl (0.60-1.40); GLUCOSE 88 mg/dl (70-99); POTASSIUM 4.1 mmol/L (3.5-5.1); SODIUM 140 mmol/L (136-145); TRIGLYCERIDES 354 mg/dl (0-150); VERY LOW DENSITY LIPOPROT CALC 71 mg/dl
[2017-10-13 13:15] LABS: ALKALINE PHOSPHATASE 92 U/L (45-117); CHOLESTEROL/HDL RATIO 5.5; HDL CHOLESTEROL 40 mg/dl; LDL CHOLESTEROL CALCULATED 108 mg/dl
== END | disposition home or self-care (01) ==
LOC: C.LABPVFM 08:07
PROVIDERS: ATTEND Family Medicine
DX: E78.5 Hyperlipidemia, unspecified (principal); I10 Essential (primary) hypertension; E53.8 Deficiency of other specified B group vitamins; F43.10 Post-traumatic stress disorder, unspecified; R73.9 Hyperglycemia, unspecified

== ENCOUNTER → 2017-11-30 | Outpatient (CLI) | payer OTHER ==
--- NOTE | 2017-11-30 14:38 | DIAGNOSTIC IMAGING REPORT ---
RIGHT WRIST 4 VIEWS CLINICAL HISTORY: Fall with right wrist pain. FINDINGS: 4 views of the right wrist are obtained. No prior studies are available for comparison at the time of dictation. The skeletal structures are well mineralized. No fracture is seen. The joint spaces of the wrist are preserved. Mild overlying soft tissue edema is noted. IMPRESSION: Mild soft tissue swelling with no radiographic evidence of right wrist fracture. Electronically signed by: Mario Alberto Campos M.D. 11/30/2017 2:37 PM Dictated Date/Time: 11/30/2017 2:36 PM
== END | disposition home or self-care (01) ==
LOC: C.RADPV 14:23
PROVIDERS: ATTEND Family Medicine
DX: M79.641 Pain in right hand (principal)

== ENCOUNTER → 2018-05-22 | Outpatient (CLI) | payer OTHER ==
--- NOTE | 2018-05-22 11:31 | DIAGNOSTIC IMAGING REPORT ---
L KNEE 1 OR 2 VIEWS ROUTINE CLINICAL HISTORY: Left knee pain. COMPARISON: Left knee radiographs March 06, 2013 and MRI of the left knee March 13, 2013. FINDINGS: Alignment of the left knee is anatomic. No fracture or osseous lesion is present. There is no joint effusion. There is minimal chondrocalcinosis within the menisci. Joint spaces are preserved. IMPRESSION: 1. No acute fracture. 2. Mild chondrocalcinosis within the menisci. Otherwise, unremarkable left knee radiographs. Electronically signed by: Brayan Brewster M.D. 05/22/2018 11:29 AM Dictated Date/Time: 05/22/2018 11:28 AM
== END | disposition home or self-care (01) ==
LOC: C.RADPV 11:20
PROVIDERS: ATTEND Family Medicine
DX: M25.562 Pain in left knee (principal); M11.262 Other chondrocalcinosis, left knee

== ENCOUNTER 2024-08-20 11:20 | Observation (INO) ==
--- NOTE | 2024-08-20 11:52 | Emergency Department Note ---
Impression & Plan Atrial fibrillation with rapid ventricular response, Elevated brain natriuretic peptide (BNP) level ED Provider Note NAME: RA HOLBROOK AGE: 64 SEX: M : 1960 ARRIVES VIA: Ambulance INFORMANT: Patient, ED PROVIDER(S): Ashley Sterling MD CHIEF COMPLAINT: A-fib with RVR HPI: This is a 64-year-old male presenting for 3 days worth of shortness of breath, weakness. Patient notes that he does feel more tired when he walks over the past 2 days. He also notes slightly more weakness at rest. He presents via EMS and was in A-fib with RVR. Was given 10 mg of diltiazem and round. Otherwise patient denies any current chest pain or pleuritic chest pain. No fevers, chills, nausea or vomiting. No diarrhea. No subsequent changes to patient's medications. ROS: See above HPI for pertinent positives & negatives. A total of 10 systems reviewed and were otherwise negative. PAST MEDICAL HISTORY: See Below PAST SURGICAL HISTORY: See Below FAMILY HISTORY: See Below SOCIAL HISTORY: See Below HOME MEDICATIONS: See Below ALLERGIES: See Below VITALS: See Below PHYSICAL EXAMINATION: General: resting comfortably in no acute distress Head: Normocephalic and atraumatic Eyes: Normal inspection, extraocular muscles intact Ear, nose, throat: Normal external exam Neck: Normal range of motion Respiratory: lungs clear to auscultation bilaterally Cardiovascular: Irregularly irregular lar rate/rhythm, no murmur GI: soft, nontender, no guarding or rebound Extremities: nontender, moves all extremities Neuro: The patient awake and alert, appropriately conversive, no focal deficits, symmetric faces Skin: Warm, dry, and intact MEDICAL DECISION MAKING: This is a 64-year-old male presenting for 3 days of shortness of breath, weakness. Patient notes mostly weakness with minimal shortness of breath. No pleurisy at this time. Patient is currently in A-fib with RVR. -Patient placed on monitor continues to be in A-fib with RVR. Will give another IV bolus of diltiazem, 10 mg -Patient's symptoms only transiently improved, however he then had recurrence of A-fib RVR -Will do IV diltiazem drip at this time due to patient's persistent A-fib with RVR to the rates of 130s to 150 -Blood was reviewed showing no significant electrolyte disturbances, leukocytosis. BNP elevated without troponin elevation. -Chest Xray independently interpreted by me showing no pneumothorax, focal opacity, or pleural effusions. Differential diagnosis: AF with RVR, pneumonia, PE, electrolyte disturbance ER treatment provided: See below Independent History obtained from: Diagnostics interpreted by me: ECG: ECG independently interpreted by me with atrial fibrillation with RVR, rate of 130, normal QRS, normal QTc, no ST segment elevations consistent with STEMI criteria Cardiac Monitoring: An order was placed for continuous cardiac monitoring. The monitor shows a rate of 147 was atrial fibrillation rhythm. Laboratory studies: As stated above and show below. Imaging studies: See below. Critical Care Note: I have personally spent 45 minutes of critical care time in the direct management of this patient. This includes bedside care, interpretation of diagnostic studies, and testing, discussion with consultants, patient, and family members, and other required patient management activities. This 45 minutes is in excess of all separately billable procedures. Past Med/Surg History Problem List (Updated 08/20/24 @ 17:32 by Ashley Sterling MD) Elevated brain natriuretic peptide (BNP) level (Acute) Atrial fibrillation with rapid ventricular response (Acute) Hypomagnesemia Atrial fibrillation with RVR New onset atrial fibrillation H/O bilateral inguinal hernia repair (03/08/23) Robotic Laparoscopic Bilateral Inguinal Hernia Repair with mesh. Bilateral spigelian hernia repair with mesh, less then 3cm incarcerated(Bilateral) - Dayne Berman, DO, FACS Hyperlipidemia (Acute) Acid reflux disease (Acute) Benign essential hypertension (Acute) Pernicious anemia (Acute) Post traumatic stress disorder (PTSD) (Acute) Elevated liver enzymes (Acute) Elevated blood sugar level (Acute) Hypokalemia (Acute) Vitamin B 12 deficiency (Acute) Screening PSA (prostate specific antigen) Vitamin D deficiency Allergic rhinitis Arthritis Neck pain Low back pain Neuropathy of right hand Bilateral wrist pain Pain of both elbows Left wrist pain Nausea Right hip pain Routine health maintenance Chronic pain Hip pain, bilateral Right inguinal pain Bilateral inguinal hernia Left inguinal hernia recurrent Recurrent right inguinal hernia Medical History Strabismus History of anesthesia problem DDD (degenerative disc disease) Arthritis Pernicious anemia Diverticulosis Post traumatic stress disorder Hyperlipidemia Hypertension Acid reflux Right wrist pain Right elbow pain Murmur Heart palpitations Surgical History Hydrocele History of facial surgery History of arthroscopy of right knee History of arthroscopy of left knee History of right inguinal hernia repair History of colonoscopy History of esophagogastroduodenoscopy (EGD) History of wisdom tooth extraction Family History Brother Family history of diabetes mellitus Family history of esophageal cancer Uncle Family history of diabetes mellitus Mother Breast cancer Grandfather Myocardial infarction Other No family history of adverse response to anesthesia Denies family history of Ovarian cancer Prostate cancer Colorectal cancer Social History Smoking Status: Never smoker Second Hand Exposure: No; Do You Dip or Chew Tobacco: No; Hx Alcohol Use: Yes Alcohol type: wine Alcohol Intake Frequency: 2-4 x/Month Hx Substance Use: No Preferred Language: [place] Communication Ability: Effective Visual Impairment: No Limitations Hearing Ability: Normal 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 Required: No Beliefs That Will Affect Care: None marital status: Current Living Situation: Spouse current occupational status: retired How many Children do You have: 0 Feels Safe at Home: Yes Childhood Exposure to Second-Hand Smoke: Yes Diet: regular caffeine: Yes during the past year weight has: remained stable Dental Care, Regularly: Yes Physical Activity Frequency: Daily Seatbelt Use: always Sunscreen Use: Yes Do you think of yourself as: straight/heterosexual Sexual Activity: has been sexually active within the last 12 months Gender Identity: Male Assistive Devices: Glasses Allergies Allergies Allergy/AdvReac Type Severity Reaction Status Date / Time bee venom protein (honey bee) Allergy Severe anaphylaxis Verified 08/20/24 13:05 oxycodone Allergy Mild nausea/vomi Verified 08/20/24 13:05 ting Penicillins Allergy Mild RASH Verified 08/20/24 13:05 hydrocodone AdvReac Mild SEVERE Verified 08/20/24 13:05 NAUSEA AND VOMITING Home Meds Home Medications Medication Instructions Recorded Confirmed multivitamin 1 tab PO QAM 04/18/19 08/20/24 acetaminophen 500 mg tablet 500 mg PO DAILY PRN fever or pain 04/23/19 08/20/24 Previous Rx's Medication Instructions Recorded rosuvastatin 10 mg tablet 10 mg PO PM #90 tabs 06/10/24 losartan 100 1 tab PO QAM #90 tabs 07/22/24 mg-hydrochlorothiazide 25 mg tablet metoprolol succinate 100 mg 100 mg PO QAM #90 tabs 07/22/24 tablet,extended release 24 hr pantoprazole 20 mg tablet,delayed 20 mg PO PM #90 tabs 07/22/24 release sertraline 100 mg tablet 100 mg PO HS #90 tabs 07/22/24 Results & Data (ED) Vital Signs Vital Signs - 24 hr 08/20/24 11:31 08/20/24 11:36 08/20/24 11:42 Temperature 36.9 C Temperature Source Oral Pulse Rate 119 H 122 H Pulse Rate from SpO2 Sensor 108 H Respiratory Rate 16 16 Respiratory Effort / Characteristics Non-Labored Spontaneous Respiratory Depth Normal Blood Pressure 134/105 H 123/94 Blood Pressure Mean 114 103 Pulse Oximetry 90 99 Oxygen Delivery Method Room Air Room Air Sepsis Recent Fever Within 48 Hours No Sepsis New/Unexplained Change in Mental Status No Sepsis Action Taken by Nursing No Action Required 08/20/24 11:51 08/20/24 12:16 08/20/24 12:24 Temperature Temperature Source Pulse Rate 144 H Pulse Rate from SpO2 Sensor Respiratory Rate Respiratory Effort / Characteristics Respiratory Depth Blood Pressure 114/78 Blood Pressure Mean 94 Pulse Oximetry Oxygen Delivery Method Room Air Sepsis Recent Fever Within 48 Hours Sepsis New/Unexplained Change in Mental Status Sepsis Action Taken by Nursing 08/20/24 12:36 08/20/24 12:45 08/20/24 13:00 Temperature Temperature Source Pulse Rate 124 H 128 H 132 H Pulse Rate from SpO2 Sensor 82 87 115 H Respiratory Rate 19 13 16 Respiratory Effort / Characteristics Respiratory Depth Blood Pressure 121/81 116/83 104/81 Blood Pressure Mean 94 88 92 Pulse Oximetry 100 99 99 Oxygen Delivery Method Room Air Room Air Room Air Sepsis Recent Fever Within 48 Hours Sepsis New/Unexplained Change in Mental Status Sepsis Action Taken by Nursing 08/20/24 13:15 08/20/24 13:30 08/20/24 13:45 Temperature Temperature Source Pulse Rate 134 H 145 H 143 H Pulse Rate from SpO2 Sensor 112 H 104 H 105 H Respiratory Rate 12 18 12 Respiratory Effort / Characteristics Respiratory Depth Blood Pressure 107/74 119/82 120/82 Blood Pressure Mean 79 94 92 Pulse Oximetry 100 100 100 Oxygen Delivery Method Room Air Room Air Sepsis Recent Fever Within 48 Hours Sepsis New/Unexplained Change in Mental Status Sepsis Action Taken by Nursing Laboratory Data 08/20/24 11:45 08/20/24 11:45 Lab Results 08/20/24 Range/Units 11:45 WBC 8.08 (4.8-10.8) K/ul RBC 4.13 L (4.70-6.10) M/uL Hgb 13.9 L (14.0-18.0) g/dl Hct 39.4 L (42.0-52.0) % MCV 95.4 (80.0-100.0) fL MCH 33.7 (25.0-34.0) pg MCHC 35.3 (32.0-36.0) g/dL RDW Std Deviation 43.2 (36.4-46.3) fL RDW Coeff of Opal 12.4 (11.5-14.5) % Plt Count 217 (130-400) K/uL MPV 9.8 (9.4-12.4) fL Immature Gran % (Auto) 0.4 % Neut % (Auto) 74.3 % Lymph % (Auto) 15.1 % [place] % (Auto) 9.0 % Eos % (Auto) 0.6 % Baso % (Auto) 0.6 % Neut # (Auto) 6.00 (1.40-6.50) K/uL Lymph # (Auto) 1.22 (1.20-3.40) K/uL [place] # (Auto) 0.73 H (0.11-0.59) K/uL Eos # (Auto) 0.05 (0.00-0.50) K/uL Baso # (Auto) 0.05 (0.00-0.20) K/uL Immature Gran # (Auto) 0.03 (0.01-0.20) K/uL Sodium 136 (136-145) mmol/L Potassium 4.0 (3.5-5.1) mmol/L Chloride 103 (98-107) mmol/L Carbon Dioxide 26 (21-32) mmol/L Anion Gap 7 (3-11) BUN 14 (6-23) mg/dl Creatinine 0.94 (0.6-1.4) mg/dl Est Cr Clr Drug Dosing 88.3 ml/min eGFR 91.09 BUN/Creatinine Ratio 14.9 (10-20) Glucose 119 H (70-99(Fasting)) mg/dl Calcium 9.5 (8.6-10.3) mg/dl Magnesium 1.3 L (1.7-2.4) mg/dl Troponin I High Sens 13.9 (0-20) pg/ml B-Natriuretic Peptide 783 H (0-100) pg/ml TSH 2.672 (0.300-4.500) uIu/ml Administered Medications Diltiazem HCl 125 mg/ Dextrose 125 mls @ 10 mls/hr IV .[id number] [facility]; Protocol Stop: 09/19/24 12:14 Last Titration: 08/20/24 17:28 Dose: 10 mg/hr, 10 mls/hr Documented By: NALLELY Co-signed By: RUBY Titration: 08/20/24 15:11 Dose: 15 mg/hr, 15 mls/hr Documented By: ROSALINDA Co-signed By: MACARIO Titration: 08/20/24 13:50 Dose: 10 mg/hr, 10 mls/hr Documented By: ROSALINDA Co-signed By: CHELE Admin: 08/20/24 12:21 Dose: 5 mg/hr, 5 mls/hr Documented By: ROSALINDA Co-signed By: SIOMARA Magnesium Sulfate/Dextrose (Magnesium Sulfate / D5w) 1 gm in 100 mls @ 100 mls/hr IV Q1H [facility] Stop: 08/20/24 18:29 Last Admin: 08/20/24 17:26 Dose: 100 mls/hr Documented By: Infusion: 08/20/24 17:13 Dose: Infused Documented By: Admin: 08/20/24 16:13 Dose: 100 mls/hr Documented By: RIKI Discontinued Medications Apixaban (Apixaban 5 Mg Tablet) 5 mg PO NOW STA Stop: 08/20/24 14:06 Last Admin: 08/20/24 15:10 Dose: 5 mg Documented By: ROSALINDA Diltiazem HCl (Diltiazem Hcl 5 Mg/Ml 5 Ml Vial) 10 mg IV NOW STA Stop: 08/20/24 11:45 Last Admin: 08/20/24 11:58 Dose: 10 mg Documented By: ROSALINDA Co-signed By: ML Magnesium Sulfate/Dextrose (Magnesium Sulfate / D5w) 1 gm in 100 mls @ 50 mls/hr IV Q2H BELINDA Stop: 08/20/24 22:14 Last Infusion: 08/20/24 16:19 Dose: Infused Documented By: Admin: 08/20/24 14:28 Dose: 50 mls/hr Documented By: GLADYS Metoprolol Succinate (Metoprolol Succ 50mg Ext Rel Tab) 100 mg PO NOW STA Stop: 08/20/24 13:53 Last Admin: 08/20/24 14:28 Dose: 100 mg Documented By: GLADYS Metoprolol Succinate (Metoprolol Succ 50mg Ext Rel Tab) 100 mg PO NOW STA Stop: 08/20/24 15:26 Last Admin: 08/20/24 17:20 Dose: 100 mg Documented By: NALLELY Miscellaneous (Stat Iv Infusion Titration Per Protocol) 1 each N/A NOW STA Stop: 08/20/24 12:12 Last Admin: 08/20/24 12:27 Dose: Not Given Documented By: Imaging Data Radiologist's Impression: Chest X-Ray 08/20/24 11:45 XR chest 1V portable CLINICAL HISTORY: Afib, SOB COMPARISON STUDY: Chest radiograph February 28, 2023. FINDINGS: Lung volumes are normal. Lungs are clear. There is no pneumothorax or pleural effusion. Cardiac size is stable. Mediastinal contours are normal. There is no evidence for pulmonary edema. IMPRESSION: No acute cardiopulmonary findings. No change in appearance of the chest. ACT 112: Negative or not required by law. Electronically signed by: rBayan Brewster M.D. 08/20/2024 12:05 PM Discharge Plan Visit Data Chief Complaint: Cardiac Assessment ED Provider: Ashley Sterling Discharge Problem: Atrial fibrillation with rapid ventricular response, Elevated brain natriuretic peptide (BNP) level Patient Disposition: Admitted As Inpatient Discharge Instructions Interventions: ED Discharge Assessment Last Done: 08/20/24 16:38
[2024-08-20] MEDS: dilTIAZem HCl 5 MG/ML 5 ML VIAL IV STA (11:58)
[2024-08-20 12:02] LABS: Basophils # (auto) 0.05 K/uL (0.00-0.20); Basophils % (auto) 0.6 %; Eosinophils # (auto) 0.05 K/uL (0.00-0.50); Eosinophils % (auto) 0.6 %; Hematocrit (blood only) 39.4 % (42.0-52.0); Hemoglobin 13.9 g/dl (14.0-18.0); Immature Granulocytes # (auto) 0.03 K/uL (0.01-0.20); Immature Granulocytes % (auto) 0.4 %; Lymphocytes # (auto) 1.22 K/uL (1.20-3.40); Lymphocytes % (auto) 15.1 %; Mean Corpuscular Hemoglobin 33.7 pg (25.0-34.0); Mean Corpuscular Hgb Conc 35.3 g/dL (32.0-36.0); Mean Corpuscular Volume 95.4 fL (80.0-100.0); Mean Platelet Volume 9.8 fL (9.4-12.4); Monocytes # (auto) 0.73 K/uL (0.11-0.59); Neutrophils % (auto) 74.3 %; Platelet Count 217 K/uL (130-400); RDW Coefficient of Variation 12.4 % (11.5-14.5); RDW Standard Deviation 43.2 fL (36.4-46.3); Red Blood Count 4.13 M/uL (4.70-6.10); White Blood Count 8.08 K/ul (4.8-10.8)
--- NOTE | 2024-08-20 12:07 | XRay Report ---
XR chest 1V portable CLINICAL HISTORY: Afib, SOB COMPARISON STUDY: Chest radiograph February 28, 2023. FINDINGS: Lung volumes are normal. Lungs are clear. There is no pneumothorax or pleural effusion. Car diac size is stable. Mediastinal contours are normal. There is no evidence for pulmonary edema. IMPRESSION: No acute cardiopulmonary findings. No change in appearance of the chest. ACT 112: Negative or not required by law. Electronically signed by: Brayan Brewster M.D. 08/20/2024 12:05 PM
[2024-08-20 12:18] LABS: BUN Creatinine Ratio 14.9 (10-20); Calcium 9.5 mg/dl (8.6-10.3); Creatinine Clr Calc Pharmacy 88.3 ml/min
[2024-08-20] MEDS: dilTIAZem HCL 125 MG in DEXTROSE 5% 100 ML IV SCH (12:21)
[2024-08-20 12:25] LABS: Troponin I High Sensitivity 13.9 pg/ml (0-20)
[2024-08-20] MEDS: STAT IV Infusion **Titration per Protocol STA (12:27)
--- NOTE | 2024-08-20 13:12 | History & Physical Report ---
Date of Service August 20, 2024 Assessment & Plan (1) New onset atrial fibrillation: Plan: Patient presented for new onset A-fib with RVR on 08/20 Refractory to Cardizem 10 mg IV x 2 Diltiazem drip started in the ED TSH ordered, pending Mag ordered, pending Echocardiogram ordered for the morning of 08/21 Patient is not currently on anticoagulation Will start patient on Eliquis 5 mg BID [id number]: 1 (h/o hypertension) While he might not require long-term anticoagulation, recommend in the short term to keep the option open for rhythm control Continue daily metoprolol Titrate Cardizem drip Continuous telemetry monitoring A.m. CBC, BMP, mag (2) Hypomagnesemia: Plan: Magnesium 1.3 on arrival; may be contributing to #1 Magnesium sulfate 1 g IV x 4 Recheck a.m. mag (3) Atrial fibrillation with RVR: Plan: Treatment (as above) (4) Hyperlipidemia: Plan: Continue rosuvastatin Plan Disposition: Obs - Admit to PCU telemetry Full code AHA diet VTE PPx: Start on Eliquis 5mg BID History of Present Illness Chief Complaint: Cardiac assessment Primary Care Provider: Krysten Delgado MD Richi is a pleasant 64-year-old male with PMH of arthritis, allergic rhinitis, PTSD, acid reflux, HLD, and pernicious anemia. He presented via EMS on 08/20 for weakness and SOB with exertion. EMS noted that he was in A-fib with RVR and he was given Cardizem 10 mg en route. Patient reports his symptoms started on Monday afternoon. He was having dizziness/tiredness and can feel his heart racing. Patient has been monitoring his heart rate via home wrist cuff. He reports that when he woke up today his heart rate was around 70 bpm, but then it will go up to greater than 100 at times. Patient initially thought it might be secondary to dehydration. He used to receive B12 shots for his pernicious anemia but stopped this in 2019; he does report that he was taking B12 supplement and a B complex out of concern that his HR might be tied to the anemia. 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 He denies any prior history of atrial fibrillation. No PMH of CHF, stroke/TIA, [place], PVD, diabetes, or DVT/PE. He does have prior history of HTN. Patient did not take his regular morning medications today; however, he does report good consistency with taking his metoprolol usually. He denies any recent change in medications. No sick contacts. No history of thyroid issues. No supplemental oxygen at baseline. No CPAP at night. Patient denies history of blood thinner usage, but denies any h/o bleeding disorders or GI bleeds. He does have a history of bug bites, and had several ticks this summer, but believes he got them all off. Patient denies smoking or tobacco use. He does report drinking white wine over the weekend for the [employer] game; no hard alcohol. Patient is tachycardic at 128 bpm at time of admission; vitals otherwise stable. ED course: Diltiazem 10 mg IV Diltiazem drip ROS: Patient endorses night-sweats (attributes to night-ware), feeling off balance, intermittent chest palpitations, chest racing, dry cough (attributes to allergies), nausea (attributes to taking metoprolol), and occassional numbness in the fingers (attributes to Raynaud's). Patient denies fever, chills, dizziness like the room is spinning, lightheadedness, syncope, falling, headache, chest pain, pleuritic CP, SOB at rest or with exertion, abdominal pain, vomiting, diarrhea, change in urinary/bowel habits, or blood in the urine/stool. Allergies Allergy/AdvReac Type Severity Reaction Status Date / Time bee venom protein (honey bee) Allergy Severe anaphylaxis Verified 08/20/24 13:05 oxycodone Allergy Mild nausea/vomi Verified 08/20/24 13:05 ting Penicillins Allergy Mild RASH Verified 08/20/24 13:05 hydrocodone AdvReac Mild SEVERE Verified 08/20/24 13:05 NAUSEA AND VOMITING Home Medications Medication Instructions Recorded Confirmed Type multivitamin 1 tab PO QAM 04/18/19 08/20/24 History acetaminophen 500 mg tablet 500 mg PO DAILY PRN fever or pain 04/23/19 08/20/24 History rosuvastatin 10 mg tablet 10 mg PO PM #90 tabs 06/10/24 08/20/24 Rx losartan 100 1 tab PO QAM #90 tabs 07/22/24 08/20/24 Rx mg-hydrochlorothiazide 25 mg tablet metoprolol succinate 100 mg 100 mg PO QAM #90 tabs 07/22/24 08/20/24 Rx tablet,extended release 24 hr pantoprazole 20 mg tablet,delayed 20 mg PO PM #90 tabs 07/22/24 08/20/24 Rx release sertraline 100 mg tablet 100 mg PO HS #90 tabs 07/22/24 08/20/24 Rx apixaban 5 mg tablet (Eliquis) 5 mg PO BID #60 tabs 08/21/24 Rx Past Med/Surg History Problem List (Updated 08/21/24 @ 11:48 by Philomena Long PA-C) Hypertension Elevated brain natriuretic peptide (BNP) level (Acute) Atrial fibrillation with rapid ventricular response (Acute) Hypomagnesemia Atrial fibrillation with RVR New onset atrial fibrillation H/O bilateral inguinal hernia repair (03/08/23) Robotic Laparoscopic Bilateral Inguinal Hernia Repair with mesh. Bilateral spigelian hernia repair with mesh, less then 3cm incarcerated(Bilateral) - Dayne Berman, DO, FACS Hyperlipidemia (Acute) Acid reflux disease (Acute) Benign essential hypertension (Acute) Pernicious anemia (Acute) Post traumatic stress disorder (PTSD) (Acute) Elevated liver enzymes (Acute) Elevated blood sugar level (Acute) Hypokalemia (Acute) Vitamin B 12 deficiency (Acute) Screening PSA (prostate specific antigen) Vitamin D deficiency Allergic rhinitis Arthritis Neck pain Low back pain Neuropathy of right hand Bilateral wrist pain Pain of both elbows Left wrist pain Nausea Right hip pain Routine health maintenance Chronic pain Hip pain, bilateral Right inguinal pain Bilateral inguinal hernia Left inguinal hernia recurrent Recurrent right inguinal hernia Medical History Strabismus History of anesthesia problem DDD (degenerative disc disease) Arthritis Pernicious anemia Diverticulosis Post traumatic stress disorder Hyperlipidemia Hypertension Acid reflux Right wrist pain Right elbow pain Murmur Heart palpitations Surgical History Hydrocele History of facial surgery History of arthroscopy of right knee History of arthroscopy of left knee History of right inguinal hernia repair History of colonoscopy History of esophagogastroduodenoscopy (EGD) History of wisdom tooth extraction Family History Brother Family history of diabetes mellitus Family history of esophageal cancer Uncle Family history of diabetes mellitus Mother Breast cancer Grandfather Myocardial infarction Other No family history of adverse response to anesthesia Denies family history of Ovarian cancer Prostate cancer Colorectal cancer Social History Smoking Status: Never smoker Second Hand Exposure: No; Do You Dip or Chew Tobacco: No; Hx Alcohol Use: Yes Alcohol type: wine Alcohol Intake Frequency: 2-4 x/Month Hx Substance Use: No Preferred Language: Albanian Communication Ability: Effective Visual Impairment: No Limitations Hearing Ability: Normal Manager Business Intelligence Required: No Beliefs That Will Affect Care: None marital status: Current Living Situation: Spouse current occupational status: retired How many Children do You have: 0 Feels Safe at Home: Yes Childhood Exposure to Second-Hand Smoke: Yes Diet: regular caffeine: Yes during the past year weight has: remained stable Dental Care, Regularly: Yes Physical Activity Frequency: Daily Seatbelt Use: always Sunscreen Use: Yes Do you think of yourself as: straight/heterosexual Sexual Activity: has been sexually active within the last 12 months Gender Identity: Male Assistive Devices: Glasses Review of Systems Review of Systems: See HPI above Physical Exam Physical Exam: General: no acute distress; anxious; pleasant affect; non-toxic appearing; well- nourished; cooperative HEENT: normocephalic, atraumatic; no scleral icterus; PERRLA; strabismus of the left eye; vision and hearing intact Neck: supple; no lymphadenopathy; trachea midline Skin: warm, dry without signs of tenting; no cyanosis; no rashes, bruising, lesions, or erythema noted CV: chest wall NTP; irregularly irregular rhythm tachycardic around 130 bpm; S1/S2 normal; no murmurs/rubs/gallops; pulses intact and symmetric at radial, DP, and PT Lungs: no acute respiratory distress; symmetrical chest wall expansion; clear breath sounds across all lung oneil w/o adventitious sounds; no wheezing ABD: Soft, NTP; BS present; no rebound/guarding; no distention MSK: no tics or fasciculations; no edema noted in the LEs b/l, nonerythematous Neuro: A&Ox3; normal mood and affect; fluent speech; no focal deficits; sensation intact and symmetric in lower extremities bilaterally Results & Data Results & Data Vital Signs (Past 12 Hours) Vital Signs Temp Pulse Resp BP Pulse Ox O2 Del Method 08/20/24 12:45 128 H 13 116/83 99 Room Air 08/20/24 12:36 124 H 19 121/81 100 Room Air 08/20/24 12:24 114/78 08/20/24 12:16 Room Air 08/20/24 11:51 144 H 08/20/24 11:42 122 H 16 123/94 99 08/20/24 11:36 Room Air 08/20/24 11:31 36.9 C 119 H 16 134/105 H 90 Room Air Laboratory Results Abnormal lab results 08/20/24 Range/Units 11:45 RBC 4.13 L (4.70-6.10) M/uL Hgb 13.9 L (14.0-18.0) g/dl Hct 39.4 L (42.0-52.0) % [place] # (Auto) 0.73 H (0.11-0.59) K/uL Glucose 119 H (70-99(Fasting)) mg/dl B-Natriuretic Peptide 783 H (0-100) pg/ml Diagnostic Findings Chest X-Ray 08/20/24 11:45 XR chest 1V portable CLINICAL HISTORY: Afib, SOB COMPARISON STUDY: Chest radiograph February 28, 2023. FINDINGS: Lung volumes are normal. Lungs are clear. There is no pneumothorax or pleural effusion. Cardiac size is stable. Mediastinal contours are normal. There is no evidence for pulmonary edema. IMPRESSION: No acute cardiopulmonary findings. No change in appearance of the chest. ACT 112: Negative or not required by law. Electronically signed by: Brayan Brewster M.D. 08/20/2024 12:05 PM ECG Additional Comments: ECG revealed atrial fibrillation with RVR at 130 bpm; QTc 432 Code Status & VTE Plan Code Status Full code (discussed with both patient and patient's at bedside) VTE Prophylaxis Plan VTE Prophylaxis will be ordered: Yes Supervising Physician Co-Signing Physician Notes I personally saw and examined the patient. I independently reviewed the labs, EKG, imaging, problem list, medication list, past medical history and family history. I verified all harrell points and agree with Casey Valdez PA-C with the following exceptions and/or additions: 89 year old male presents to the ER with A/P A. fib RVR - new onset, TTE, TSH WNL. Increase his usual metoprolol succinate to 200mg PO daily, continue diltiazem as needed overnight to see if this is required as an add on medication. Hold losartan/HCTZ to allow up titration of rate controlling medications. [id number] 1. alf anticoagulation debatable although he is close to 66 years old would favor continuing this. Would at least recommend for initial treatment to allow rhythm control as an option for cardiology PG Care Time/CCT Total # of Minutes Spent Total Time Spent with Patient: Total time spent is greater than 50% in coordination of care (as documented) at patient's floor/unit and/or counseling patient: Coding [place] [address] INT INP/OBS CARE 3/75MIN Patient Type Established Medical Decision Making High Complexity Diagnoses New onset atrial fibrillation I48.91 Hypomagnesemia E83.42 Atrial fibrillation with RVR I48.91 Mixed hyperlipidemia E78.2 Hyperlipidemia type: mixed hyperlipidemia (4) Hyperlipidemia Hyperlipidemia type: mixed hyperlipidemia Qualified Code(s): E78.2 - Mixed hyperlipidemia
[2024-08-20 13:57] LABS: Magnesium 1.3 mg/dl (1.7-2.4)
[2024-08-20 14:12] LABS: Thyroid Stimulating Hormone 2.672 uIu/ml (0.300-4.500)
[2024-08-20] MEDS: METOPROLOL SUCC 50MG EXT REL TAB PO STA ×2 (14:28→17:20)
[2024-08-20] MEDS: MAGNESIUM SULFATE / D5W 1 GM/100 ML BAG IV SCH ×2 (14:28→16:13)
[2024-08-20] MEDS: APIXABAN 5 MG TABLET PO STA (15:10)
[2024-08-20] MEDS ORDERED: ACETAMINOPHEN 325 MG TAB PO PRN (17:10)
[2024-08-20] MEDS ORDERED: PANTOprazole 40 MG TAB PO SCH (21:00)
[2024-08-20] MEDS: PANTOprazole 40 MG TAB PO SCH (21:05)
[2024-08-20] MEDS: SERTRALINE HCL 100 MG TABLET PO SCH (21:05)
[2024-08-20] MEDS: ROSUVASTATIN CALCIUM 10 MG TAB PO SCH (21:05)
[2024-08-21 06:40] LABS: Basophils # (auto) 0.06 K/uL (0.00-0.20); Basophils % (auto) 0.7 %; Eosinophils # (auto) 0.22 K/uL (0.00-0.50); Eosinophils % (auto) 2.7 %; Hematocrit (blood only) 34.8 % (42.0-52.0); Hemoglobin 12.2 g/dl (14.0-18.0); Immature Granulocytes # (auto) 0.02 K/uL (0.01-0.20); Immature Granulocytes % (auto) 0.2 %; Lymphocytes % (auto) 18.4 %; Mean Corpuscular Hemoglobin 33.2 pg (25.0-34.0); Mean Corpuscular Hgb Conc 35.1 g/dL (32.0-36.0); Mean Corpuscular Volume 94.8 fL (80.0-100.0); Mean Platelet Volume 10.1 fL (9.4-12.4); Monocytes # (auto) 0.73 K/uL (0.11-0.59); Neutrophils # (auto) 5.62 K/uL (1.40-6.50); Platelet Count 181 K/uL (130-400); RDW Coefficient of Variation 12.5 % (11.5-14.5); RDW Standard Deviation 43.8 fL (36.4-46.3); Red Blood Count 3.67 M/uL (4.70-6.10); White Blood Count 8.15 K/ul (4.8-10.8)
[2024-08-21 07:14] LABS: BUN Creatinine Ratio 15.4 (10-20); Calcium 9.1 mg/dl (8.6-10.3); Creatinine Clr Calc Pharmacy 106.4 ml/min; Magnesium 1.7 mg/dl (1.7-2.4)
[2024-08-21 07:21] VITALS: RESP 18; O2SAT 97
[2024-08-21] MEDS ORDERED: METOPROLOL SUCC 50MG EXT REL TAB PO SCH (09:00)
[2024-08-21] MEDS: METOPROLOL SUCC 50MG EXT REL TAB PO SCH (09:12)
[2024-08-21] MEDS: APIXABAN 5 MG TABLET PO SCH (09:13)
[2024-08-21] MEDS ORDERED: MAGNESIUM SULFATE / D5W 1 GM/100 ML BAG IV SCH (09:30)
[2024-08-21] MEDS: MAGNESIUM OXIDE 400 MG TAB PO SCH (10:12)
--- NOTE | 2024-08-21 10:52 | Discharge Summary ---
Discharge Summary Date of Service August 21, 2024 Principal Dx & Hospital Course #1 = Principal Diagnosis (1) New onset atrial fibrillation: Patient presented for new onset A-fib with RVR on 08/20, patient not previously on anticoagulation convert back into sinus rhythm at 2235 08/20 - Presented with symptoms of weakness, SOB with exertion, dizziness, tiredness, heart palpitations - now asymptomatic - Refractory to Cardizem 10 mg IV x 2 - Diltiazem drip started in the ED; discontinued 08/21 after conversion to NSR and low BP/HR - TSH WNL, troponin negative - Mag low 1.3 -> 1.7; see hypomagnesia workup below - Echocardiogram showed No wall abnormalities - Started patient on Eliquis 5 mg BID - [id number]: 1 (h/o hypertension) - Patient on 100 mg of metoprolol at home for HTN -> transition to 200 mg on admission - Continuous telemetry monitoring showed converted back into sinus rhythm - outpatient cardiology referral made; Will see Dr. Peres Monday with transition to care with Dr. Culver in the future (2) Hypomagnesemia: Patient on hydrochlorothiazide at home - Magnesium 1.3 on arrival; may be contributing to #1 - Magnesium sulfate 1 g IV x 4 on admission - repeat Mg 1.7 - given 400 mg PO x2 given IV fluid shortage - repeat mg afternoon before discharge still 1.7 - will need outpatient follow-up with PCP regarding hydrochlorothiazide use and magnesium supplementation - recommend repeat magnesium recheck in 1 week (3) Hyperlipidemia: - recent lipid panel on 06/2024 showed borderline high LDL, remainder WNL - Continue rosuvastatin (4) Hypertension: - held home losartan hydrochlorothiazide on admission - increased metoprolol too 200 mg as above - will discharge on a half of the dose of losartan hydrochlorothiazide, patient to take half a tablet daily (5) Elevated brain natriuretic peptide (BNP) level: Elevated BNP seen on admission, 783 No history of CHF; does not appear to have CHF exacerbation or diagnosis at this time - patient did present with symptoms of dyspnea on exertion, now resolved - Non-hypoxic - CXR on admission showed no acute findings - Kidney function within normal limits, no history of CKD - Troponin on admission negative - Echocardiogram showed EF 60 to 65%, mild pulmonary hypertension - continue with home hydrochlorothiazide at half of the dose due to metoprolol increase - recommend outpatient sleep study with PCP to rule out JOVANA - to have outpatient follow-up with cardiology Plan Chronic stable diagnoses: pernicious anemia - follow-up with PCP outpatient Tele: A fib until 2234 with rates 60s-90s, convert to sinus with rates 70s VTE PPx: Start on Eliquis 5mg BID Disposition: Obs - Admit to PCU telemetry; Discharge 08/21 with outpatient cardiology follow up Monday Completed patient education of current condition and management was provided. All questions that the patient asked were answered, and patient demonstrated complete understanding. Notes For Next Care Provider Needs magnesium level checked in 1 week Medication Changes From Visit Eliquis 5 mg BID Metoprolol increase from 100 mg to 200 mg daily patient to take half tablets of losartan hydrochlorothiazide daily until cardiology follow-up Admission HPI Per Admitting Provider Richi is a pleasant 64-year-old male with PMH of arthritis, allergic rhinitis, PTSD, acid reflux, HLD, and pernicious anemia. He presented via EMS on 08/20 for weakness and SOB with exertion. EMS noted that he was in A-fib with RVR and he was given Cardizem 10 mg en route. Patient reports his symptoms started on Monday afternoon. He was having dizziness/tiredness and can feel his heart racing. Patient has been monitoring his heart rate via home wrist cuff. He reports that when he woke up today his heart rate was around 70 bpm, but then it will go up to greater than 100 at times. Patient initially thought it might be secondary to dehydration. He used to receive B12 shots for his pernicious anemia but stopped this in 2019; he does report that he was taking B12 supplement and a B complex out of concern that his HR might be tied to the anemia. 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 He denies any prior history of atrial fibrillation. No PMH of CHF, stroke/TIA, NC, PVD, diabetes, or DVT/PE. He does have prior history of HTN. Patient did not take his regular morning medications today; however, he does report good consistency with taking his metoprolol usually. He denies any recent change in medications. No sick contacts. No history of thyroid issues. No supplemental oxygen at baseline. No CPAP at night. Patient denies history of blood thinner usage, but denies any h/o bleeding disorders or GI bleeds. He does have a history of bug bites, and had several ticks this summer, but believes he got them all off. Patient denies smoking or tobacco use. He does report drinking white wine over the weekend for the [employer] football game; no hard alcohol. Patient is tachycardic at 128 bpm at time of admission; vitals otherwise stable. ED course: Diltiazem 10 mg IV Diltiazem drip ROS: Patient endorses night-sweats (attributes to night-ware), feeling off balance, intermittent chest palpitations, chest racing, dry cough (attributes to allergies), nausea (attributes to taking metoprolol), and occassional numbness i n the fingers (attributes to Raynaud's). Patient denies fever, chills, dizziness like the room is spinning, lightheadedness, syncope, falling, headache, chest pain, pleuritic CP, SOB at rest or with exertion, abdominal pain, vomiting, diarrhea, change in urinary/bowel habits, or blood in the urine/stool. Admission Exam Per Admitting Provider General: no acute distress; anxious; pleasant affect; non-toxic appearing; well- nourished; cooperative HEENT: normocephalic, atraumatic; no scleral icterus; PERRLA; strabismus of the left eye; vision and hearing intact Neck: supple; no lymphadenopathy; trachea midline Skin: warm, dry without signs of tenting; no cyanosis; no rashes, bruising, lesions, or erythema noted CV: chest wall NTP; irregularly irregular rhythm tachycardic around 130 bpm; S1/S2 normal; no murmurs/rubs/gallops; pulses intact and symmetric at radial, DP, and PT Lungs: no acute respiratory distress; symmetrical chest wall expansion; clear breath sounds across all lung oneil w/o adventitious sounds; no wheezing ABD: Soft, NTP; BS present; no rebound/guarding; no distention MSK: no tics or fasciculations; no edema noted in the LEs b/l, nonerythematous Neuro: A&Ox3; normal mood and affect; fluent speech; no focal deficits; sensation intact and symmetric in lower extremities bilaterally Discharge Exam The patient is awake, alert and oriented 3, well developed and well nourished, normocephalic and atraumatic, in no acute distress. Non-toxic appearing. HEENT- EOMI, mucous membranes moist. Hearing grossly intact. Heart-normal S1 and S2. No murmurs, rubs or gallops. Lungs-clear bilaterally, no respiratory distress, no accessory muscle use. Abdomen-normal bowel sounds and soft. No ascites noted. Non-tender. Extremities- no clubbing, cyanosis, or edema. Rheumatologic-normal range of motion. Psychiatric-normal affect. Discharge Plan Discharge Items Patient Disposition: Home - Self-Care Reason For Visit: NEW ONSET A FIB RVR Discharge Diagnosis: 1. New onset Paroxysmal atrial fibrillation Condition on Discharge: Good Activity: Resume your previous activity Non-emergency contact: Primary Care Provider and Billet Worker Call non-emergency contact if: you have any medication questions Follow-up/Referrals: Dg Peres MD [Physician] - 08/23/24 12:45 pm (APPOINTMENT AT THE [address] [address] Hospital follow up appoitment *You can transition care to Dr. Culver after this appointment* ) Krysten Delgado MD [Primary Care Provider] - 08/28/24 1:00 pm () Diet: Regular Addtl Attending Provider Instructions: You were hospitalized for new onset atrial fibrillation. since your heart rate/rhythm went back into your sinus rhythm, we called this paroxysmal atrial fibrillation. You were started on a blood thinner known as Eliquis that you will take twice daily to prevent blood clots from forming as that is a risk with this heart rhythm. With atrial fibrillation your heart rate can be higher than normal, we have increased your metoprolol dose from 100 mg to 200 mg to help with this. This means that you will take 2 tablets daily of your previous 100 mg dose. We held your losartan/hydrochlorothiazide on admission to allow for increase in metoprolol dose. I recommend that you take only 1/2 a tablet daily until you have an outpatient appointment with cardiology to prevent from your blood pressure from getting too low. Your echocardiogram of your heart showed that you have mild pulmonary hypertension. This could be due to underlying sleep apnea. I recommend that you have an outpatient sleep study set up with your PCP. You are also treated for a low magnesium level on admission. This could have contributed to the new onset of atrial fibrillation. It is possible that your hydrochlorothiazide caused your magnesium to be low. As stated before, continue to hold this medication until PCP or cardiology follow-up. I also recommend that you have your magnesium level rechecked in 1 week with your PCP. It is recommended that you follow up with your PCP in 1-2 weeks after being discharged. Here are some guidelines about taking Eliquis: Increased risk of blood clots if you stop taking Eliquis. Do not stop taking Eliquis without talking to your doctor.. Stopping Eliquis increases your risk of having a stroke. Increased risk of bleeding. Eliquis can cause bleeding which can be serious and may lead to . This is because Eliquis is a blood thinner medicine (anticoagulant) that lowers blood clotting. During treatment with Eliquis you are likely to bruise more easily, and it may take longer for bleeding to stop. * If you ever cannot get bleeding to stop please report to the ER * If you have a bruise that is large/painful or swollen you should also be seen by a medical provider Call your doctor or get medical help right away if you or your child develop any of these signs or symptoms of bleeding: unexpected bleeding or bleeding that lasts a long time, such as: * Nose bleeds that happen often * unusual bleeding from the gums * bleeding that is severe or you cannot control * red, pink or brown urine * bright red or black stools (looks like tar) * cough up blood or blood clots * vomit blood or your vomit looks like coffee grounds If you have a fall and hit your head, please come to the ER and get checked out. Being on a blood thinner increases your risk of brain bleeding with falls. Avoid high risk activities, such as: * standing on tall ladders * riding motorcycles * anything where you are high risk for falls or trauma Avoid taking NSAIDs (pain medication) while you are taking a blood thinner. This includes: * Ibuprofen, Aleve Advil, Naproxen. * If you are ever unsure you can ask your doctor or pharmacist. * Tylenol is SAFE to take. If you have any new or worsening chest pain or shortness of breath please return to the ER. Pending Studies at Discharge: No Stand-Alone Forms: [facility] [place], Smoking Cessation Medications and DC Order Prescriptions: New Eliquis 5 mg Tablet 5 mg PO BID Qty: 60 0RF losartan-hydrochlorothiazide 50-12.5 mg tablet 1 tab PO DAILY Qty: 30 0RF metoprolol succinate 200 mg tablet extended release 24 hr 200 mg PO DAILY Qty: 30 0RF Continued rosuvastatin 10 mg tablet 10 mg PO PM Qty: 90 1RF pantoprazole 20 mg tablet,delayed release (DR/EC) 20 mg PO PM Qty: 90 3RF sertraline 100 mg tablet 100 mg PO HS Qty: 90 3RF multivitamin tablet 1 tab PO QAM acetaminophen 500 mg tablet 500 mg PO DAILY PRN (Reason: fever or pain) Discontinued metoprolol succinate 100 mg tablet extended release 24 hr 100 mg PO QAM Qty: 90 3RF losartan-hydrochlorothiazide 100-25 mg tablet 1 tab PO QAM Qty: 90 3RF Krames/Other Patient Handouts: Apixaban Oral Tablet, AFib Dc, AFib Admission Data Admit Date/Time: 08/20/24 13:52 Attending Provider: Kaye Mendez Admit Provider: Ramirez Lindsey Primary Care Provider: Krysten Delgado Other Providers: Ramirez Lindsey Hospital Stay Data Consultations 08/20/24 13:58 ED Decision to Admit Stat Diagnostic Imagining Performed Chest Xray Discharge Instructions Given to Patient (Per Discharging Provider) You were hospitalized for new onset atrial fibrillation. since your heart rate/rhythm went back into your sinus rhythm, we called this paroxysmal atrial fibrillation. You were started on a blood thinner known as Eliquis that you will take twice daily to prevent blood clots from forming as that is a risk with this heart rhythm. With atrial fibrillation your heart rate can be higher than normal, we have increased your metoprolol dose from 100 mg to 200 mg to help with this. This means that you will take 2 tablets daily of your previous 100 mg dose. We held your losartan/hydrochlorothiazide on admission to allow for increase in metoprolol dose. I recommend that you take only 1/2 a tablet daily until you have an outpatient appointment with cardiology to prevent from your blood pressure from getting too low. Your echocardiogram of your heart showed that you have mild pulmonary hypertension. This could be due to underlying sleep apnea. I recommend that you have an outpatient sleep study set up with your PCP. You are also treated for a low magnesium level on admission. This could have contributed to the new onset of atrial fibrillation. It is possible that your hydrochlorothiazide caused your magnesium to be low. As stated before, continue to hold this medication until PCP or cardiology follow-up. I also recommend that you have your magnesium level rechecked in 1 week with your PCP. It is recommended that you follow up with your PCP in 1-2 weeks after being discharged. Here are some guidelines about taking Eliquis: Increased risk of blood clots if you stop taking Eliquis. Do not stop taking Eliquis without talking to your doctor.. Stopping Eliquis increases your risk of having a stroke. Increased risk of bleeding. Eliquis can cause bleeding which can be serious and may lead to . This is because Eliquis is a blood thinner medicine (anticoagulant) that lowers blood clotting. During treatment with Eliquis you are likely to bruise more easily, and it may take longer for bleeding to stop. * If you ever cannot get bleeding to stop please report to the ER * If you have a bruise that is large/painful or swollen you should also be seen by a medical provider Call your doctor or get medical help right away if you or your child develop any of these signs or symptoms of bleeding: unexpected bleeding or bleeding that lasts a long time, such as: * Nose bleeds that happen often * unusual bleeding from the gums * bleeding that is severe or you cannot control * red, pink or brown urine * bright red or black stools (looks like tar) * cough up blood or blood clots * vomit blood or your vomit looks like coffee grounds If you have a fall and hit your head, please come to the ER and get checked out. Being on a blood thinner increases your risk of brain bleeding with falls. Avoid high risk activities, such as: * standing on tall ladders * riding motorcycles * anything where you are high risk for falls or trauma Avoid taking NSAIDs (pain medication) while you are taking a blood thinner. This includes: * Ibuprofen, Aleve Advil, Naproxen. * If you are ever unsure you can ask your doctor or pharmacist. * Tylenol is SAFE to take. If you have any new or worsening chest pain or shortness of breath please return to the ER. Supervising Physician Co-Signing Physician Notes PA Supervision Note: I personally saw and examined the patient. I verified all harrell points and agree with YVAN Long with the following exceptions and/or additions: S-Pt feeling much better since converting to NSR. Denies SOB, CP, any further dizziness O- Vitals reviewed Gen: [AAOx3, NAD] HEENT: [anicteric sclerae, EOMI] CV: [RRR no mgr has a prominent split S2] Pulm: [CTAB no wcr] Abd: [+BS soft NT ND no masses or hernias] Ext: [no edema] Skin: [no rashes, warm/dry] Neuro: [full strength throughout] CBC, BMP, magnesium reviewed A/P-64 yo male here with new onset Afib, spontaneously converted to sinus rhythm. Increased metoprolol to 200mg daily for improved rate control. Started Eliquis for VTE prevention cutting HCTZ in half to allow for higher dose metoprolol but also will help with low Mag levels Stable for dc to home Total Time Total Time Spent Total Time Spent (In Minutes): 50 mins Total Time Includes: Examination of the Patient, Discharge Planning and Medication Reconciliation Coding [place] [address] INP/OBS DISCH >30 MIN Patient Type Established Medical Decision Making Moderate Complexity Diagnoses New onset atrial fibrillation I48.91 Hypomagnesemia E83.42 Mixed hyperlipidemia E78.2 Hyperlipidemia type: mixed hyperlipidemia Hypertension I10 Elevated brain natriuretic peptide (BNP) level R79.89
--- NOTE | 2024-08-21 14:07 | XCELERA ---
[id number]
[2024-08-21 15:56] VITALS: BP 134/87; PULSE 79; TEMP 97.2
== END 2024-08-21 18:00 | disposition home or self-care (01) ==
LOC: ED 11:20 → 2S 11:20 → SUATTDRO 13:52 → 2S 16:38